=== PATIENT | female | born 1950 | race Caucasian/White ===

== ENCOUNTER → 2020-03-25 12:13 | Outpatient (BNVA) | payer MEDICARE, OTHER, SELFPAY | PROVIDERS: PCP Family Medicine; Referring Provider Dermatology; Visit Provider Internal Medicine Cardiovascular Disease | DX: I42.8 Other cardiomyopathies (principal); R06.02 Shortness of breath; R07.9 Chest pain, unspecified | CPT/HCPCS: 80048; 83880; 84484 ==

== ENCOUNTER → 2020-05-10 09:15 | Outpatient (BNVA) | payer MEDICARE, OTHER, SELFPAY | PROVIDERS: PCP Family Medicine; Visit Provider Internal Medicine Cardiovascular Disease | DX: I42.8 Other cardiomyopathies (principal); I44.7 Left bundle-branch block, unspecified; I10 Essential (primary) hypertension | CPT/HCPCS: 80048; 83880 ==

== ENCOUNTER 2020-09-23 14:30 | Outpatient (CLI) | payer MEDICARE, OTHER, SELFPAY ==
[2020-09-23 15:15] LABS: Basophils # 0.1 10^3/uL (0.0-0.1); Eosinophils # 0.3 10^3/uL (0.0-0.8); Eosinophils % 3.2 %; Hematocrit 41.5 % (37.0-47.0); Hemoglobin 13.6 g/dL (11.5-15.3); Lymphocytes # 2.3 10^3/uL (0.8-4.8); Lymphocytes % 25.9 %; Mean Corpuscular HGB Conc 32.8 g/dL (30.0-36.0); Mean Corpuscular Hemoglobin 28.8 pg (28.0-34.0); Mean Corpuscular Volume 87.7 fL (81-99); Mean Platelet Volume 9.7 fL (7.4-10.4); Monocytes # 0.6 10^3/uL (0.2-0.9); Monocytes % 6.6 %; Neutrophils # 5.58 10^3/uL (1.8-7.7); Neutrophils % 62.8 %; Nucleated Red Blood Cells % 0 %; Platelet Count 411 10^3/cmm (130-400); Red Blood Count 4.73 10^6/uL (4.1-5.3); Red Cell Distribution Width 13.3 % (12.1-15.1); White Blood Count 8.9 10^3/uL (4.0-10.0)
[2020-09-24 18:52] LABS: Alternaria Alternata (M6) Ige <0.10 kU/L; Alternaria Class 0; Bermuda Class 0; Bermuda Grass (G2) Ige <0.10 kU/L; Cat Dander (E1) Ige <0.10 kU/L; Cat Dander Class 0; Common Ragweed (Short) (W1) Ig <0.10 kU/L; D. Farinae Class 0; Dermatophagoides Class 0; Dermatophagoides Farinae (D2) <0.10 kU/L; Dermatophagoides Pteronyssinus <0.10 kU/L; Dog Dander (E5) Ige <0.10 kU/L; Dog Dander Class 0; Elm (T8) Ige <0.10 kU/L; Elm Class 0; English Plantain (W9) Ige <0.10 kU/L; English Plantain Class 0; House Dust (Greer) (H1) Ige <0.10 kU/L; House Dust (Hollister- Stier) <0.10 kU/L; House Dust Class 0; Immunoglobulin E 19 kU/L (<OR=114); Immunoglobulin E 20 kU/L (<OR=114); Johnson Grass (G10) Ige <0.10 kU/L; Johnson Grass Cl 0; June Grass Class 0; June Grass(Kentucky Blue) (G8) <0.10 kU/L; Lamb'S Quarters (Goose Foot) <0.10 kU/L; Lamb'S Quarters Class 0; Maple (Box Elder) (T1) Ige <0.10 kU/L; Maple Class 0; Meadow Fescue (G4) Ige <0.10 kU/L; Meadow Fescue Class 0; Mucor Racemosus Class 0; Oak (T7) Ige <0.10 kU/L; Oak Class 0; Orchard Grass (Cocksfoot) (G3) <0.10 kU/L; Penicillium Class 0; Penicillium Notatum (M1) Ige <0.10 kU/L; Perennial Rye Grass (G5) Ige <0.10 kU/L; Perennial Rye Grass Class 0; Ragweeed Class 0; Rough Marsh Elder (W16) Ige <0.10 kU/L; Rough Marsh Elder Class 0; Sweet Vernal Class 0; Sweet Vernal Grass (G1) Ige <0.10 kU/L; Timothy Grass (G6) Ige <0.10 kU/L; Timothy Grass Class 0
[2020-10-08 16:48] LABS: Aspergillus Fumigatus, Igg Ab, 3.7 mg/L (<=102)
== END 2020-09-23 14:31 | disposition home or self-care (01) ==
PROVIDERS: PCP Physician Assistant Medical; Visit Provider Internal Medicine Pulmonary Disease
DX: R05 Cough (principal); I10 Essential (primary) hypertension; I42.8 Other cardiomyopathies; E78.5 Hyperlipidemia, unspecified; I44.7 Left bundle-branch block, unspecified; Z79.899 Other long term (current) drug therapy
CPT/HCPCS: 36415; 82785; 85025; 86003

== ENCOUNTER → 2020-10-01 11:14 | Outpatient (BNVA) | payer MEDICARE, OTHER, SELFPAY | PROVIDERS: PCP Physician Assistant Medical; Visit Provider Internal Medicine Pulmonary Disease | DX: Z01.812 Encounter for preprocedural laboratory examination (principal); R05 Cough | CPT/HCPCS: 87635 ==

== ENCOUNTER 2020-10-06 12:58 | Outpatient (CLI) | payer MEDICARE, OTHER, SELFPAY ==
--- NOTE | 2020-10-06 13:30 | CT_ITS ---
WS: [id number] CT CHEST TECHNIQUE: Noncontrast CT of the chest with coronal and sagittal reformatted images. CLINICAL INFORMATION: recurrent pneumonia in patient with COPD COMPARISON: None. DLP: 519.[address] scans at [facility] use at least one of these dose optimization techniques: automat ed exposure control; mA and/or kV adjustment per patient size (includes targeted exams where dose is matched to clinical indication); or iterative reconstruction. FINDINGS: 1.4 cm left breast lesion. Recommend further evaluation with left diagnostic mammography and ultrasou nd. Mild chronic emphysematous changes. No acute pulmonary infiltrates. No consolidation or pleural fluid . No suspicious pulmonary parenchymal abnormalities. No mediastinal or hilar lymphadenopathy. Aortic calcification. Normal GE junction. Adrenal glands are normal. Cholecystectomy clips. CT/CT chest wo con [id number] IMPRESSION: 1. 1.4 cm low-attenuation left breast lesion. Recommend further evaluation wit h left breast diagnostic mammography and ultrasound. 2. Moderate chronic emphysematous changes. No acute pulmonary infiltrates. 3. No suspicious pulmonary parenchymal abnormalities. 4. No mediastinal or hilar lymphadenopathy. No axillary lymphadenopathy.
--- NOTE | 2020-10-06 13:55 | PFTS_ITS ---
Date of Study:10/06/20 Date of Dictation: MECHANICS: Forced vital capacity (FVC) is normal. Forced expiratory volume in one second (FEV1) is normal. FEV1/FVC is normal. FLOW VOLUME LOOP: Scooping is present. LUNG VOLUMES: Total lung capacity (TLC) is normal. Residual volume (RV) is normal. DIFFUSING CAPACITY FOR CARBON MONOXIDE: Normal. INTERPRETATION: The prebronchodilator spirometry is consistent with moderate obstruction. The postbronchodilator spirometry is normal. There is a significant postbronchodilator response. Lung volumes are normal. Gas exchange (DLCO) is normal. MTDD
== END 2020-10-06 12:59 | disposition home or self-care (01) ==
LOC: CT 12:58
PROVIDERS: PCP Physician Assistant Medical; Visit Provider Internal Medicine Pulmonary Disease
DX: R05 Cough (principal); J18.9 Pneumonia, unspecified organism; J44.9 Chronic obstructive pulmonary disease, unspecified; N64.89 Other specified disorders of breast
CPT/HCPCS: 71250; 94060; 94726; 94729; J7611

== ENCOUNTER 2021-02-15 12:03 | Outpatient (CLI) | payer MEDICARE, OTHER, SELFPAY ==
--- NOTE | 2021-02-15 12:45 | USCV_ITS ---
Juany Diana Age: 70 Gender: F : 1950 Exam Date: 02/15/2021 12:25 Ordering Phys: Suraj Awad MD ([email or web address]) Technologist: Soraida Hernandez [place] [facility] [place]: OTHER CM BP: 131 / 74 HR: 64 Rhythm: Sinus Technical Quality: Fair MEASUREMENTS (Male / Female) Normal Values 2D ECHO LV Diastolic Diameter PLAX 3.9 cm 4.2 - 5.9 / 3.9 - 5.3 cm LV Systolic Diameter PLAX 3.0 cm LV Chamber Size 5.1 cm IVS Diastolic Thickness 1.3 cm 0.6 - 1.0 / 0.6 - 0.9 cm IVS Systolic Thickness 1.8 cm LVPW Diastolic Thickness 1.6 cm 0.6 - 1.0 / 0.6 - 0.9 cm LVPW Systolic Thickness 1.2 cm RV Chamber Size 3.3 cm LVOT Diameter 2.0 cm LV Ejection Fraction 2D Teich 48.7 % LV Ejection Fraction MOD 2C 46.6 % LV Ejection Fraction 2C AL 43.4 % LA Diameter 2.9 cm LA Width 3.1 cm LA Height 4.4 cm RA Width 2.6 cm RA Height 3.7 cm M-MODE LV Diastolic Diameter MM 4.6 cm 4.2 - 5.9 / 3.9 - 5.3 cm LV Systolic Diameter MM 3.5 cm LV Ejection Fraction MM Teich 50.2 % IVS Diastolic Thickness MM 0.5 cm 0.6 - 1.0 / 0.6 - 0.9 cm IVS Systolic Thickness MM 0.8 cm LVPW Diastolic Thickness MM 0.8 cm 0.6 - 1.0 / 0.6 - 0.9 cm LVPW Systolic Thickness MM 1.3 cm Aortic Annulus Diameter 3.4 cm LA Ao Ratio MM 0.9 MV E Point Septal Separation 1.2 cm DOPPLER AV Peak Velocity 89.0 cm/s LVOT Peak Velocity 77.0 cm/s AV Area Cont Eq vti 3.2 cm squared AV Area Cont Eq pk 2.7 cm squared MV Area PHT 3.9 cm squared Mitral E to A Ratio 0.7 MV E' Velocity 34.0 cm/s Mitral E to MV E' Ratio 8.7 Mitral E to LV E' Lateral Ratio 8.9 Mitral E to LV E' Septal Ratio 8.6 TR Peak Velocity 196.8 cm/s TR Peak Gradient 15.5 mmHg TR Mean Velocity 145.8 cm/s TR Mean Gradient 9.4 mmHg TR Velocity Time Integral 55.3 cm TV Peak E Velocity 31.0 cm/s Right Atrial Pressure 3.0 mmHg Pulmonary Artery Systolic Pressu 18.5 mmHg PV Peak Velocity 66.0 cm/s RV Acceleration Time 0.1 s RV Ejection Time 0.3 s RV AcT/ET 0.3 FINDINGS Left Ventricle Normal LV size with a diminished ejection fraction of 45%. Diffuse hypokinesia of the left ventricle. Mild concentric left ventricular hypertrophy.Grade I/IV diastolic dysfunction (abnormal relaxation filling pattern), normal to mildly elevated filling pressures. Right Ventricle The right ventricle is normal in size and function. Right Atrium The right atrium is normal in size. Left Atrium The left atrium is normal in size. Mitral Valve No gross abnormalities noted Aortic Valve Trace aortic valve regurgitation. Tricuspid Valve Trace to mild tricuspid valve regurgitation. Pulmonic Valve No gross abnormalities noted Pericardium Normal pericardium without effusion. Aorta Normal ascending aorta dimension. CONCLUSIONS Normal LV size with a diminished ejection fraction of 45%. Diffuse hypokinesia of the left ventricle. Mild concentric left ventricular hypertrophy.Grade I/IV diastolic dysfunction (abnormal relaxation filling pattern), normal to mildly elevated filling pressures. Trace aortic valve regurgitation. Trace to mild tricuspid valve regurgitation. There is no pericardial effusion. There are no intracardiac masses. No similar previous studies are available for comparison Dr Suraj Awad MD [facility] (Electronically Signed) Final Date: 15 February 2021 20:34 S
== END 2021-02-15 12:04 | disposition home or self-care (01) ==
PROVIDERS: PCP Physician Assistant Medical; Visit Provider Internal Medicine Cardiovascular Disease
DX: I42.8 Other cardiomyopathies (principal)
CPT/HCPCS: 93306

== ENCOUNTER → 2021-06-14 11:11 | Outpatient (BNVA) | payer MEDICARE, OTHER, SELFPAY | PROVIDERS: PCP Physician Assistant Medical; Visit Provider Internal Medicine Cardiovascular Disease | DX: E78.2 Mixed hyperlipidemia (principal); I50.33 Acute on chronic diastolic (congestive) heart failure; E78.5 Hyperlipidemia, unspecified; R06.02 Shortness of breath | CPT/HCPCS: 80048; 80061; 83880 ==

== ENCOUNTER → 2022-01-25 09:55 | Outpatient (BNVA) | payer MEDICARE, OTHER, SELFPAY | PROVIDERS: PCP Registered Nurse; Visit Provider Internal Medicine Cardiovascular Disease | DX: I42.8 Other cardiomyopathies (principal); I44.7 Left bundle-branch block, unspecified; I10 Essential (primary) hypertension; J44.9 Chronic obstructive pulmonary disease, unspecified; E78.5 Hyperlipidemia, unspecified; Z87.891 Personal history of nicotine dependence | CPT/HCPCS: 99214 ==

== ENCOUNTER 2022-03-15 09:30 | Outpatient (CLI) | payer MEDICARE, OTHER, SELFPAY ==
[2022-03-15 10:17] LABS: Chol HDL Ratio 3.28 mg/dL (0.0-4.40); Cholesterol 177 mg/dL (0-200); HDL Cholesterol 54 mg/dL (60-100); LDL Cholesterol Calculated 106 mg/dL (50-129); LDL HDL Ratio 1.96 RATIO (0.00-3.22); Triglycerides 84 mg/dL (0-150)
== END 2022-03-15 09:31 | disposition home or self-care (01) ==
LOC: LAB 09:34
PROVIDERS: PCP Registered Nurse; Visit Provider Internal Medicine Cardiovascular Disease
DX: E78.2 Mixed hyperlipidemia (principal)
CPT/HCPCS: 80061

== ENCOUNTER 2022-03-24 12:56 | Outpatient (CLI) | payer MEDICARE, OTHER, SELFPAY ==
--- NOTE | 2022-03-24 13:45 | USCV_ITS ---
Juany Diana Age: 72 Gender: F : 1950 Exam Date: 03/24/2022 14:03 Ordering Phys: Suraj Awad MD ([email or web address]) Technologist: Rafia Palcaio [place] [facility] [place]: cardiomyopathy BP: 130 / 90 HR: 57 Rhythm: Sinus Technical Quality: Adequate MEASUREMENTS (Male / Female) Normal Values 2D ECHO LV Diastolic Diameter PLAX 4.1 cm 4.2 - 5.9 / 3.9 - 5.3 cm LV Systolic Diameter PLAX 2.6 cm IVS Diastolic Thickness 1.4 cm 0.6 - 1.0 / 0.6 - 0.9 cm IVS Systolic Thickness 1.7 cm LVPW Diastolic Thickness 0.7 cm 0.6 - 1.0 / 0.6 - 0.9 cm LVPW Systolic Thickness 1.3 cm LVOT Diameter 2.0 cm LV Ejection Fraction 2D Teich 66.2 % LV Ejection Fraction MOD 2C 64.0 % LV Ejection Fraction 2C AL 63.8 % LA Diameter 3.0 cm LA Width 3.3 cm LA Height 4.9 cm RA Width 2.0 cm RA Height 4.5 cm Aorta at Sinotubular Diameter 2.5 cm IVC Diameter 1.4 cm M-MODE MV E Point Septal Separation 1.5 cm DOPPLER AV Peak Velocity 92.0 cm/s LVOT Peak Velocity 86.0 cm/s AV Area Cont Eq vti 2.6 cm squared AV Area Cont Eq pk 2.9 cm squared MV Peak Velocity 74.0 cm/s MV Area PHT 3.9 cm squared Mitral E to A Ratio 0.8 MV E' Velocity 64.0 cm/s TR Peak Velocity 137.0 cm/s TR Peak Gradient 7.5 mmHg Right Atrial Pressure 3.0 mmHg Pulmonary Artery Systolic Pressu 10.5 mmHg PV Peak Velocity 46.0 cm/s RV Acceleration Time 0.1 s RV Ejection Time 0.3 s RV AcT/ET 0.3 FINDINGS Left Ventricle Mild left ventricular hypertrophy. Abnormal septal motion consistent with conduction abnormality. The LV ejection fraction around 50%.Grade I/IV diastolic dysfunction (abnormal relaxation filling pattern), normal to mildly elevated filling pressures. Right Ventricle The right ventricle is normal in size and function. Right Atrium The right atrium is normal in size. Left Atrium Mildly increased left atrial size. Mitral Valve Trace mitral valve regurgitation. Aortic Valve Thickened aortic valve. Tricuspid Valve Mild tricuspid valve regurgitation. Pulmonic Valve No gross abnormalities noted in Pericardium No pericardial effusion. Aorta Normal aortic annulus size. IVC Normal inferior vena cava. CONCLUSIONS Mild left ventricular hypertrophy. Abnormal septal motion consistent with conduction abnormality. The LV ejection fraction around 50%.Grade I/IV diastolic dysfunction (abnormal relaxation filling pattern), normal to mildly elevated filling pressures. Thickened aortic valve. Mildly increased left atrial size. Trace mitral valve regurgitation. Thickened aortic valve. Mild tricuspid valve regurgitation. Compared to the study from [facility] [place] 02/15/[place]21, there may not be a significant change Dr Suraj Awad MD [facility] (Electronically Signed) Final Date: 27 March 2022 09:13 S
== END 2022-03-24 12:57 | disposition home or self-care (01) ==
LOC: RAD 12:57
PROVIDERS: PCP Registered Nurse; Visit Provider Internal Medicine Cardiovascular Disease
DX: I42.8 Other cardiomyopathies (principal); R06.00 Dyspnea, unspecified; I08.3 Combined rheumatic disorders of mitral, aortic and tricuspid valves
CPT/HCPCS: 93306

== ENCOUNTER → 2022-04-03 09:04 | Outpatient (BNVA) | payer MEDICARE, OTHER, SELFPAY | PROVIDERS: PCP Registered Nurse; Visit Provider Internal Medicine Pulmonary Disease | DX: J45.40 Moderate persistent asthma, uncomplicated (principal); J44.9 Chronic obstructive pulmonary disease, unspecified; I42.8 Other cardiomyopathies; R05.9 Cough, unspecified; K21.9 Gastro-esophageal reflux disease without esophagitis; Z88.9 Allergy status to unspecified drugs, medicaments and biological substances; R06.09 Other forms of dyspnea; I50.9 Heart failure, unspecified; Z82.5 Family history of asthma and other chronic lower respiratory diseases; Z87.891 Personal history of nicotine dependence; Z77.22 Contact with and (suspected) exposure to environmental tobacco smoke (acute) (chronic) | CPT/HCPCS: 99214 ==

== ENCOUNTER → 2022-08-21 14:25 | Outpatient (BNVA) | payer MEDICARE, OTHER, SELFPAY | PROVIDERS: PCP Registered Nurse; Visit Provider Internal Medicine Pulmonary Disease | DX: R09.82 Postnasal drip (principal); J44.9 Chronic obstructive pulmonary disease, unspecified; I42.8 Other cardiomyopathies; R05.9 Cough, unspecified; K21.9 Gastro-esophageal reflux disease without esophagitis; J45.909 Unspecified asthma, uncomplicated; I50.9 Heart failure, unspecified; Z87.891 Personal history of nicotine dependence; Z77.22 Contact with and (suspected) exposure to environmental tobacco smoke (acute) (chronic); Z82.5 Family history of asthma and other chronic lower respiratory diseases | CPT/HCPCS: 99214 ==

== ENCOUNTER → 2023-02-01 13:05 | Outpatient (BNVA) | payer MEDICARE, OTHER, SELFPAY | PROVIDERS: PCP Registered Nurse; Visit Provider Nurse Practitioner Family | DX: I10 Essential (primary) hypertension (principal); I42.8 Other cardiomyopathies; Z87.891 Personal history of nicotine dependence | CPT/HCPCS: 36415; 80048; 83880; 99214 ==

== ENCOUNTER → 2023-02-19 08:15 | Outpatient (BNVA) | payer MEDICARE, OTHER, SELFPAY | PROVIDERS: PCP Registered Nurse; Visit Provider Internal Medicine Pulmonary Disease | DX: J44.9 Chronic obstructive pulmonary disease, unspecified (principal); R05.9 Cough, unspecified; K21.9 Gastro-esophageal reflux disease without esophagitis; R09.82 Postnasal drip; I10 Essential (primary) hypertension; Z87.891 Personal history of nicotine dependence; Z82.5 Family history of asthma and other chronic lower respiratory diseases | CPT/HCPCS: 36415; 83880; 99214 ==

== ENCOUNTER 2023-07-13 13:52 | Emergency (ER) | payer MEDICARE, OTHER, SELFPAY ==
[2023-07-13 14:08] VITALS: BP 151/84; PULSE 126; RESP 17; TEMP 36.6; O2SAT 95; BMI 26.5
[2023-07-13 14:43] LABS: Basophils % 0.3 %; Eosinophils # 0.4 10^3/uL (0.0-0.8); Eosinophils % 5.4 %; Hematocrit 41.1 % (36-47); Lymphocytes # 0.8 10^3/uL (0.8-4.8); Lymphocytes % 11.7 %; Mean Corpuscular HGB Conc 31.9 g/dL (30-55); Mean Corpuscular Hemoglobin 28.7 pg (27-33); Mean Corpuscular Volume 89.9 fl (85-98); Mean Platelet Volume 9.7 fL (7.4-10.4); Monocytes # 0.4 10^3/uL (0.2-0.9); Neutrophils # 5.08 10^3/uL (1.8-7.7); Neutrophils % 75.9 %; Nucleated Red Blood Cells % 0 %; Platelet Count 372 10^3/cmm (157-399); Red Blood Count 4.57 10^6/uL (3.85-5.65); Red Cell Distribution Width 13.2 % (12.1-15.1); White Blood Count 6.69 10^3/uL (3.29-11.43)
[2023-07-13 15:03] LABS: Alanine Aminotransferase 36 U/L (0-33); Albumin Level 3.9 g/dL (3.5-5.2); Alkaline Phosphatase 123 U/L (35-105); Anion Gap 18.5 (5-19); Blood Urea Nitrogen 9 mg/dL (8-23); Calcium 9.5 mg/dL (8.5-10.5); Carbon Dioxide 22 mmol/L (22-29); Chloride 99 mmol/L (98-107); Globulin 3.3 g/dL (1.3-4.6); Glucose 140 mg/dL (65-115); Lipase 14 U/L (13-60); Osmolality Calculated 281 mOsm/kg (285-295); Potassium 4.5 mmol/L (3.5-5.1); Sodium 135 mmol/L (136-145); Total Bilirubin 0.3 mg/dL (0.15-1.2); Total Protein 7.2 g/dL (6.6-8.7)
[2023-07-13 15:23] LABS: Aspartate Amino Transferase 5 U/L (0-32)
--- NOTE | 2023-07-13 16:34 | ED_ITS ---
HPI - Nausea/Vomiting/Diarrhea 2 General: Chief complaint: Nausea/Vomiting/Diarrhea Stated complaint: vomiting, diarrhea Time Seen by Provider: 07/13/23 16:27 Source: patient Mode of arrival: ambulatory History of Present Illness: 73-year-old female presents emergency ro om with complaint of persistent nausea vomiting abdominal cramping. She denies any hematemesis coffee-ground emesis. She has recurrent bladder infections been on 2 rounds of antibiotics lately. She states she has subjectively had some fevers at night. MD elicited complaint: nausea and vomiting Onset (ago): minute(s) Associated nausea: Yes Pain consistency: constant Quality: cramping Exacerbating factors: none Relieving factors: none Associated symtoms: Reports nausea; Denies altered mental status, anxiety, bloating, change in vision, chest pain, cough, diaphoresis, decreased urine output, dizziness, dysuria, epistaxis, fatigue, fecal incontinence, fevers/chills, headache(s), anorexia, malaise, myalgias, numbness, palpitations, rash, short of breath, syncope, tenesmus, tinnitus or weakness Review of Systems 2 Const: Reports: fever(s) (Subjective); Denies: fatigue, malaise or diaphoresis Eyes: Denies: change in vision ENMT: Denies: tinnitus or epistaxis Card: Denies: chest pain, palpitations or syncope Resp: Denies: dyspnea GI: Reports: abdominal pain, nausea and vomiting; Denies: bloating or fecal incontinence : Denies: dysuria Musc: Denies: neck pain or back pain Skin/Breast: Denies: rash Neuro: Denies: headache(s) or dizziness Psych: Denies: anxiety PFSH ED 2 PFSH: Medical History Benign essential HTN Non-ischemic cardiomyopathy Anxiety Cardiomyopathy LBBB (left bundle branch block) EKG from today, 03/25/2020 revealed normal sinus rhythm with a left bundle branch block. Hyperlipidemia Peripheral arterial occlusive disease Major depressive disorder Surgical History H/O breast biopsy History of cholecystectomy History of laparoscopic appendectomy Family History Other CAD (coronary artery disease) Diabetes Hypertension Lung disease Stroke Denies family history of Dementia Hyperlipidemia Psychiatric illness Chronic kidney disease (CKD) Suicide Cancer Social History Smoking and tobacco/nicotine status: former use of tobacco/nicotine Quit status (tobacco/nicotine): has quit using Year quit tobacco: 1970 social smoker, 3yrhx Second hand smoke exposure: Yes Alcohol intake: never Substance/Drug Use: never Lives independently: Yes Household members: none Housing: House Marital status: / service: No Current occupational status: retired Pets and animals: Yes Do you think of yourself as: Straight/Heterosexual Current gender identity: Female Physical Exam 2 Const: COMMON NORMALS: no acute distress EXAM LIMITATIONS: no altered mental status GENERAL APPEARANCE: cooperative and comfortable O RIENTATION/CONSCIOUSNESS: Yes awake, Yes oriented to person, Yes oriented to place and Yes oriented to time HENMT: COMMON NORMALS: normocephalic, atraumatic and hearing grossly normal bilaterally HEAD & SCALP: normocephalic and atraumatic Resp: COMMON NORMALS: normal respiratory effort, No retractions, No use of accessory muscles and clear to auscultation bilaterally AUSCULTATION: clear to auscultation bilaterally Cardio: COMMON NORMALS: regular rate, regular rhythm and No murmurs present (Cardio) RATE: regular rate RHYTHM: regular rhythm GI: COMMON NORMALS: Soft to palpation and No hepatosplenomegaly present A USCULTATION: Yes normoactive bowel sounds PALPATION: Yes Soft to palpation, No Tenderness to palpation present (GI), No Guarding due to palpation present (GI) and Yes No hepatosplenomegaly present Extremity: COMMON NORMALS: normal to inspection, capillary refill normal, no clubbing, cyanosis or edema, no calf tenderness and no pedal edema Neuro: SENSORIUM/ORIENTATION: Yes oriented to person, Yes oriented to place and Yes oriented to time Skin: COMMON NORMALS: no rashes or lesions noted GENERAL SKIN EXAM: no rashes or lesions noted Course 2 Vital Signs: Vital signs: Vital Signs Temperature 98 F 07/13/23 14:08 Pulse Rate 93 07/13/23 18:33 Respiratory Rate 17 07/13/23 14:08 Blood Pressure 146/79 07/13/23 18:33 Pulse Oximetry 98 07/13/23 18:33 Oxygen Delivery Me thod Room Air 07/13/23 16:39 MDM - Nausea/Vomiting/Diarrhea Medical Decision Making Cystitis. Patient is feeling better after IV fluids. Will change antibiotics for stronger coverage encouraged her to follow-up with her doctor return if is worsening problems Medical Records I reviewed the patient's medical records. Lab Data I reviewed the patient's lab results. 07/13/23 14:38 07/13/23 14:38 Laboratory Results WBC 6.69 10^3/uL (3.29-11.43) 07/13/23 14:38 RBC 4.57 10^6/uL (3.85-5.65) 07/13/23 14:38 Hgb 13.10 g/dL (11.27-16.99) 07/13/23 14:38 Hct 41.1 % (36-47) 07/13/23 14:38 MCV 89.9 fl (85-98) 07/13/23 14:38 MCH 28.7 pg (27-33) 07/13/23 14:38 MCHC 31.9 g/dL (30-55) 07/13/23 14:38 RDW 13.2 % (12.1-15.1) 07/13/23 14:38 Plt Count 372 10^3/cmm (157-399) 07/13/23 14:38 MPV 9.7 fL (7.4-10.4) 07/13/23 14:38 Neut % (Auto) 75.9 % 07/13/23 14:38 Lymph % (Auto) 11.7 % 07/13/23 14:38 [place] % (Auto) 6.0 % 07/13/23 14:38 Eos % (Auto) 5.4 % 07/13/23 14:38 Baso % (Auto) 0.3 % 07/13/23 14:38 Neut # (Auto) 5.08 10^3/uL (1.8-7.7) 07/13/23 14:38 Lymph # (Auto) 0.8 10^3/uL (0.8-4.8) 07/13/23 14:38 [place] # (Auto) 0.4 10^3/uL (0.2-0.9) 07/13/23 14:38 Eos # (Auto) 0.4 10^3/uL (0.0-0.8) 07/13/23 14:38 Baso # (Auto) 0.0 10^3/uL (0.0-0.1) 07/13/23 14:38 Nucleated RBC % (auto) 0 % 07/13/23 14:38 Nucleated RBCs # 0.0 /100WBC 07/13/23 14:38 Sodium 135 mmol/L (136-145) L 07/13/23 14:38 Potassium 4.5 mmol/L (3.5-5.1) 07/13/23 14:38 Chloride 99 mmol/L (98-107) 07/13/23 14:38 Carbon Dioxide 22 mmol/L (22-29) 07/13/23 14:38 Anion Gap 18.5 (5-19) 07/13/23 14:38 BUN 9 mg/dL (8-23) 07/13/23 14:38 Creatinine 0.9 mg/dL (0.5-0.9) 07/13/23 14:38 GFR Calculation Not Reportable 07/13/23 14:38 Glucose 140 mg/dL (65-115) H 07/13/23 14:38 Calculated Osmolality 281 mOsm/kg (285-295) L 07/13/23 14:38 Calcium 9.5 mg/dL (8.5-10.5) 07/13/23 14:38 Total Bilirubin 0.3 mg/dL (0.15-1.2) 07/13/23 14:38 AST 5 U/L (0-32) 07/13/23 14:38 ALT 36 U/L (0-33) H 07/13/23 14:38 Alkaline Phosphatase 123 U/L (35-105) H 07/13/23 14:38 Total Protein 7.2 g/dL (6.6-8.7) 07/13/23 14:38 Albumin 3.9 g/dL (3.5-5.2) 07/13/23 14:38 Globulin 3.3 g/dL (1.3-4.6) 07/13/23 14:38 Lipase 14 U/L (13-60) 07/13/23 14:38 Urine Color Yellow (Yellow) 07/13/23 16:56 Urine Appearance Hazy (CLEAR) A 12/01/23 16:56 Urine pH 5 (5-7) 07/13/23 16:56 Ur Specific [place] 1.005 (1.005-1.030) 07/13/23 16:56 Urine Protein Neg (Negative) 07/13/23 16:56 Urine Glucose (UA) Norm (Normal) 07/13/23 16:56 Urine Ketones 2+ (Negative) H 07/13/23 16:56 Urine Blood Neg (Negative) 07/13/23 16:56 Urine Nitrate Negative (Negative) 07/13/23 16:56 Urine Bilirubin Neg (Negative) 07/13/23 16:56 Urine Urobilinogen Norm mg/dL (Negative) 07/13/23 16:56 Ur Leukocyte Esterase 1+ (Negative) H 07/13/23 16:56 Urine RBC 0-4 /hpf (0-2) H 07/13/23 16:56 Urine WBC 15-25 /hpf (0-5) H 07/13/23 16:56 Ur Squamous Epith Cells 5-10 /hpf (0-5) H 07/13/23 16:56 Amorphous Sediment Not Reportable 07/13/23 16:56 Urine Bacteria Trace /hpf (NONE) 07/13/23 16:56 All radiology interpretation(s) finalized by discharge Discharge Plan Discharge Patient Disposition: Home Clinical Impression: Cystitis, Nausea and vomiting Condition: Stable Prescriptions: New promethazine 25 mg tablet 25 mg PO Q6H PRN (Reason: nausea and vomiting) Qty: 20 0RF Cipro 500 mg tablet 500 mg PO Q12H Qty: 14 0RF No Action aspirin [Adult Low Dose Aspirin] 81 mg tablet,delayed release (DR/EC) 81 mg PO DAILY lovastatin 20 mg tablet 20 mg PO DAILY lansoprazole 30 mg capsule,delayed release(DR/EC) 30 mg PO DAILY sertraline 50 mg tablet 50 mg PO DAILY spironolactone 25 mg tablet 12.5 mg PO DAILY fexofenadine [Roxanne Allergy] 180 mg tablet 180 mg PO DAILY PRN cholecalciferol (vitamin D3) 125 mcg (5,000 unit) capsule 125 mcg PO DAILY zinc 50 mg tablet 50 mg PO DAILY Saccharomyces boulardii [Florastor] 250 mg capsule 250 mg PO DAILY Rx Instructions: swallow whole montelukast 10 mg tablet 10 mg PO DAILY albuterol sulfate 2.5 mg /3 mL (0.083 %) solution for nebulization 2.5 mg inhalation Q6H PRN fluticasone propionate 50 mcg/actuation spray,suspension 1 spray intranasal DAILY PRN Rx Instructions: administer into each nostril albuterol sulfate 90 mcg/actuation HFA aerosol inhaler 2 puff inhalation Q6H PRN (Reason: shortness of breath or wheezing) Qty: 8.5 3RF Probiotic PO Zyrtec 10 mg capsule 10 mg PO DAILY PRN (Reason: allergy symptoms) Qty: 30 2RF furosemide 20 mg tablet 20 mg PO DAILY PRN (Reason: edema) Qty: 30 1RF metoprolol succinate 50 mg tablet extended release 24 hr See Rx Instructions .ROUTE .COMPLEX Qty: 90 3RF Dose Instruction: TAKE 1 TABLET DAILY Rx Instructions: TAKE 1 TABLET DAILY budesonide-formoterol [Symbicort] 160-4.5 mcg/actuation HFA aerosol inhaler 2 puff inhalation BID Qty: 10.2 6RF sacubitril-valsartan 97-103 mg tablet 1 tab PO BID Qty: 180 3RF Discharge Orders: Discharge ED (Routine); Ordered 07/13/23 Ordered By: Abel Montgomery Referrals: Marcia Madden FNP [Primary Care Provider] - Discharge Diet: Clear Liquid Discharge Activity: Increase activity as tolerated Patient Instructions: Opioid Safety, Pain Management Activity Restrictions/Additional Instructions: Thank you for choosing [facility] for your healthcare needs today. Please realize this is an emergency room and that we are providing you with a medical screening exam and this may not be complete and all inclusive of all the testing and or work up that you may need to determine your ailment or severity of your illness. It is very important that you follow up as instructed or that you return to the Emergency Department should you have concerns or if your condition changes or worsens in any way. You are seen today for nausea and vomiting. Laboratory test showed a bladder infection. Recommend he start ciprofloxacin 500 mg 1 p.o. twice daily for 7 days, we also gave you prescription for an antinausea medication to use as needed clear liquid diet for 24 to 48 hours and advance as tolerated. 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
[2023-07-13 16:39] VITALS: BP 146/88; PULSE 101; O2SAT 96
[2023-07-13] MEDS: sodium chloride 0.9% 1,000 ML 999 ML IV (16:55)
[2023-07-13] MEDS: ondansetron 2 mg/ML SDV 2 mL 4 MG IVP (16:55)
[2023-07-13 18:07] LABS: Add Urine Microscopic? YES; Bilirubin Urine Neg (Negative); Blood Urine Neg (Negative); Glucose Urine UA Norm (Normal); Ketones Urine 2+ (Negative); Leukocyte Esterase Urine 1+ (Negative); Nitrate Urine Negative (Negative); Protein Urine Neg (Negative); Specific Gravity, Urine 1.005 (1.005-1.030); Urine Appearance Hazy (CLEAR); Urine Color Yellow (Yellow); Urobilinogen Urine Norm (Negative); pH Urine 5 (5-7)
[2023-07-13 18:09] LABS: Bacteria Urine TRACE /hpf; RBC Urine 0-4 /hpf (0-2); WBC Urine 15-25 /hpf (0-5)
[2023-07-13 18:33] VITALS: BP 146/79; PULSE 93; O2SAT 98
== END 2023-07-13 18:34 | disposition home or self-care (01) ==
PROVIDERS: Physician Assistant; Emergency Provider Family Medicine; PCP Registered Nurse
DX: N30.90 Cystitis, unspecified without hematuria (principal); R11.2 Nausea with vomiting, unspecified; Z79.82 Long term (current) use of aspirin; Z87.891 Personal history of nicotine dependence; I11.9 Hypertensive heart disease without heart failure; I43 Cardiomyopathy in diseases classified elsewhere; E78.5 Hyperlipidemia, unspecified
CPT/HCPCS: 36415; 80053; 81001; 83690; 85025; 96374; 99284; J2405; J7030

== ENCOUNTER → 2023-08-15 13:22 | Outpatient (BNVA) | payer MEDICARE, OTHER, SELFPAY | PROVIDERS: PCP Registered Nurse; Visit Provider Internal Medicine Cardiovascular Disease | DX: I42.8 Other cardiomyopathies (principal); E78.2 Mixed hyperlipidemia; I10 Essential (primary) hypertension; I44.7 Left bundle-branch block, unspecified; J44.9 Chronic obstructive pulmonary disease, unspecified; Z87.891 Personal history of nicotine dependence | CPT/HCPCS: 99214 ==

== ENCOUNTER → 2024-01-30 14:16 | Outpatient (BNVA) | payer MEDICARE, OTHER, SELFPAY | PROVIDERS: PCP Nurse Practitioner Family; Visit Provider Internal Medicine Cardiovascular Disease | DX: I42.8 Other cardiomyopathies (principal); E78.2 Mixed hyperlipidemia; I44.7 Left bundle-branch block, unspecified; I10 Essential (primary) hypertension; Z87.891 Personal history of nicotine dependence | CPT/HCPCS: 99214 ==

== ENCOUNTER → 2024-02-26 14:10 | Outpatient (BNVA) | payer MEDICARE, OTHER, SELFPAY | PROVIDERS: PCP Nurse Practitioner Family; Visit Provider Internal Medicine Critical Care Medicine | DX: J45.40 Moderate persistent asthma, uncomplicated (principal); K21.9 Gastro-esophageal reflux disease without esophagitis; R09.82 Postnasal drip | CPT/HCPCS: 99213 ==

== ENCOUNTER 2024-07-19 02:12 | Emergency (ER) | payer MEDICARE, OTHER, SELFPAY ==
--- NOTE | 2024-07-19 02:22 | ECG_ITS ---
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
[2024-07-19 02:28] VITALS: BP 196/102; PULSE 104; RESP 20; TEMP 36.6; O2SAT 97; BMI 27.3
--- NOTE | 2024-07-19 02:38 | CTR_ITS ---
PROCEDURE INFORMATION: Exam: CT Head Without Contrast Exam date and time: 07/19/2024 2:53 AM Age: 74 years old Clinical indication: Syncope and collapse; Patient HX: Syncopal episode with hypertension TECHNIQUE: Imaging protocol: Computed tomography of the head without contrast. Radiation optimization: All CT scans at this facility use at least one of these dose optimization techniques: automated exposure control; mA and/or kV adjustment per patient size (includes targeted exams where dose is matched to clinical indication); or iterative reconstruction. COMPARISON: No relevant prior studies available. RADIATION DOSE METRICS: Total DLP (mGy-cm): 965.7 FINDINGS: Brain: Patchy hypodensity in the periventricular and subcortical white matter in keeping with chronic microvascular ischemic changes. Generalized global atrophy. No intracranial masses or mass effect. No midline shift. No abnormal extra-axial collections. No acute intracranial hemorrhage. Cerebral ventricles: Prominence of the ventricles commensurate with atrophy. No prachi hydrocephalus. Paranasal sinuses: Chronic right maxillary sinusitis incompletely imaged. Mastoid air cells: Visualized mastoid air cells are well aerated. Bones: Unremarkable. No acute fracture. Soft tissues: Unremarkable. CT/CT head wo con* [id number] IMPRESSION: 1. No acute intracranial findings. 2. Chronic right maxillary sinusitis incompletely imaged.
--- NOTE | 2024-07-19 02:38 | XRR_ITS ---
PROCEDURE INFORMATION: Exam: XR Chest Exam date and time: 07/19/2024 2:45 AM Age: 74 years old Clinical indication: Other: Syncope; Patient HX: Syncopal episode with hypertension TECHNIQUE: Imaging protocol: Radiologic exam of the chest. Views: 1 view. COMPARISON: CT chest con [id number] 10/06/2020 1:26 PM FINDINGS: Lungs: No infiltrate. Increased density left lung base may represent infiltrate and/or pleural effusion. Pleural spaces: See Lungs finding. Heart/Mediastinum: There is mild cardiomegaly with vascular congestion. Bones/joints: Unremarkable. XR/XR chest 1V portable [id number] IMPRESSION: 1. Mild cardiomegaly with vascular congestion. 2. Increased density left lung base may represent infiltrate and/or pleural effusion.
[2024-07-19 02:43] LABS: Basophils # 0.1 10^3/uL (0.0-0.1); Basophils % 0.6 %; Eosinophils # 0.3 10^3/uL (0.0-0.8); Eosinophils % 2.9 %; Hematocrit 38.2 % (36-47); Lymphocytes # 4.3 10^3/uL (0.8-4.8); Mean Corpuscular HGB Conc 31.9 g/dL (30-55); Mean Corpuscular Volume 87.6 fl (85-98); Mean Platelet Volume 10.1 fL (7.4-10.4); Monocytes # 0.8 10^3/uL (0.2-0.9); Monocytes % 7.7 %; Neutrophils # 4.73 10^3/uL (1.8-7.7); Neutrophils % 46.6 %; Nucleated Red Blood Cells % 0 %; Platelet Count 374 10^3/cmm (157-399); Red Blood Count 4.36 10^6/uL (3.85-5.65); Red Cell Distribution Width 13.7 % (12.1-15.1); White Blood Count 10.13 10^3/uL (3.29-11.43)
--- NOTE | 2024-07-19 02:46 | ED_ITS ---
HPI - Syncope 2 General: Chief Complaint: Syncope Stated Complaint: passed out a couple min Time Seen by Provider: 07/19/24 02:27 History of Present Illness: 74-year-old female presenting after a sy ncopal episode. She had had family over in her house. Around 11 PM they decided to lay down. They got up to go around 1. She had been up picking things up, turning up [place] lights, etc. She evidently felt somewhat faint, and then passed out. She was out for 2 minutes according to family. She had no chest pain. No shortness of breath. She has had a mild cough. No fever. She does have a history of nonischemic cardiomyopathy as well as a left bundle branch block. Related Data Home Medications Medication Instructions Recorded Confirmed aspirin 81 mg tablet,delayed 81 mg PO DAILY 03/25/20 02/26/24 release (Adult Low Dose Aspirin) lansoprazole 30 mg capsule,delayed 30 mg PO DAILY 03/25/20 02/26/24 release lovastatin 20 mg tablet 20 mg PO DAILY 03/25/20 02/26/24 sertraline 50 mg tablet 50 mg PO DAILY 03/25/20 02/26/24 spironolactone 25 mg tablet 12.5 mg PO DAILY 03/25/20 02/26/24 Saccharomyces boulardii 250 mg 250 mg PO DAILY 09/10/20 02/26/24 capsule (Florastor) albuterol sulfate 2.5 mg/3 mL 2.5 mg inhalation Q6H PRN 09/10/20 02/26/24 (0.083 %) solution for nebulization montelukast 10 mg tablet 10 mg PO DAILY 09/10/20 02/26/24 zinc 50 mg tablet 50 mg PO DAILY 09/10/20 02/26/24 Probiotic PO 01/25/22 02/26/24 fexofenadine 180 mg tablet 180 mg PO DAILY PRN 01/25/22 02/26/24 (Roxanne Allergy) fluticasone propionate 50 1 spray intranasal DAILY PRN 01/25/22 02/26/24 mcg/actuation nasal spray,suspension levothyroxine 13 mcg capsule 50 mcg PO DAILY 02/26/24 02/26/24 Previous Rx's Medication Instructions Recorded albuterol sulfate 90 mcg/actuation 2 puff inhalation Q6H PRN 09/23/20 aerosol inhaler shortness of breath or wheezing #8.5 grams metoprolol succinate 50 mg See Rx Instructions .Route 02/26/23 tablet,extended release 24 hr .COMPLEX #90 tabs valsartan 80 mg tablet See Rx Instructions .Route 03/05/24 .COMPLEX #60 tabs budesonide-formoterol HFA 160 2 puff inhalation BID COPD j44.9 05/02/24 mcg-4.5 mcg/actuation aerosol #10.2 grams inhaler Allergies Allergy/AdvReac Type Severity Reaction Status Date / Time amlodipine [From Lotrel] Allergy Unknown unknown Verified 02/26/24 15:13 benazepril [From Lotrel] Allergy Unknown unknown Verified 02/26/24 15:13 cephalexin [From Keflex] Allergy Unknown unknown Verified 02/26/24 15:13 Sulfa (Sulfonamide Allergy Unknown unknown Verified 02/26/24 15:13 Antibiotics) PFSH ED 2 PFSH: Medical History Benign essential HTN Non-ischemic cardiomyopathy Anxiety Cardiomyopathy LBBB (left bundle branch block) EKG from today, 03/25/2020 revealed normal sinus rhythm with a left bundle branch block. Hyperlipidemia Peripheral arterial occlusive disease Major depressive disorder Surgical History H/O breast biopsy History of cholecystectomy History of laparoscopic appendectomy Family History Other CAD (coronary artery disease) Diabetes Hypertension Lung disease Stroke Denies family history of Dementia Hyperlipidemia Psychiatric illness Chronic kidney disease (CKD) Suicide Cancer Social History Smoking and tobacco/nicotine status: never used tobacco/nicotine Second hand smoke exposure: Yes Alcohol intake: never Substance/Drug Use: never Lives independently: Yes Household members: none Housing: House Marital status: / service: No Current occupational status: retired Pets and animals: Yes Do you think of yourself as: Straight/Heterosexual Current gender identity: Female Physical Exam 2 Const: COMMON NORMALS: no acute distress GENERAL APPEARANCE: cooperative; not ill appearing and not frail appearing HENMT: COMMON NORMALS: normocephalic, atraumatic and Normal external nose present HEAD & SCALP: normocephalic and atraumatic FACE & SINUS: normal facial exam and face symmetric NOSE: Normal external nose present Eye: COMMON NORMALS: Equal, round and reactive pupils present and EOMs intact bilaterally PUPIL: Yes Equal, round and reactive pupils present Neck/C-Spine: GENERAL: Yes trachea midline Chest: CHEST: Yes Symmetrical chest wall rise Resp: COMMON NORMALS: normal respiratory effort, No retractions, No use of accessory muscles and clear to auscultation bilaterally AUSCULTATION: clear to auscultation bilaterally Cardio: COMMON NORMALS: regular rate and regular rhythm RATE: regular rate RHYTHM: regular rhythm GI: COMMON NORMALS: Normal to inspection, nondistended, normoactive bowel sounds present Extremity: COMMON NORMALS: no pedal edema Neuro: CARRIE COMA SCALE: document GCS findings Carrie coma scale eye opening: Spontaneous Carrie coma scale verbal response: Orientated [place] coma scale motor response: Obey commands [place] coma scale total score: 15 S ENSORY EXAM: Yes extremities (intact) Psych: COMMON NORMALS: speech normal SPEECH: Yes normal speech Skin: COMMON NORMALS: no rashes or lesions noted GENERAL SKIN EXAM: no rashes or lesions noted Course 2 Vital Signs: Vital signs: Vital Signs Temperature 98 F 07/19/24 02:28 Pulse Rate 72 07/19/24 05:27 Respiratory Rate 18 07/19/24 04:45 Blood Pressure 172/98 07/19/24 05:27 Pulse Oximetry 97 07/19/24 05:27 MDM - Syncope Medical Decision Making Blood pressure has been high. IV metoprolol, oral losartan, and 40 mg of IV Lasix have helped. Current blood pressure 163/95. Heart rate is down to 75. CBC and BMP are not remarkable. Troponin is a change of -0.2 at [address] shows chronic right maxillary sinusitis without other insults. Chest x-ray shows mild increased and vascular congestion. She has been up walking in the emergency department without assistance to the bathroom. NIH scale is 0 so be discharged. She will watch her blood pressure closely follow-up as an outpatient, return for any new or worsening symptoms. Lab Data 07/19/24 02:30 07/19/24 02:30 Radiology Impressions Chest X-Ray 07/19/24 02:38 IMPRESSION: 1. Mild cardiomegaly with vascular congestion. 2. Increased density left lung base may represent infiltrate and/or pleural effusion. Head CT 07/19/24 02:38 IMPRESSION: 1. No acute intracranial findings. 2. Chronic right maxillary sinusitis incompletely imaged. Laboratory Results WBC 10.13 10^3/uL (3.29-11.43) 07/19/24 02:30 RBC 4.36 10^6/uL (3.85-5.65) 07/19/24 02:30 Hgb 12.20 g/dL (11.27-16.99) 07/19/24 02:30 Hct 38.2 % (36-47) 07/19/24 02:30 MCV 87.6 fl (85-98) 07/19/24 02:30 MCH 28.0 pg (27-33) 07/19/24 02:30 MCHC 31.9 g/dL (30-55) 07/19/24 02:30 RDW 13.7 % (12.1-15.1) 07/19/24 02:30 Plt Count 374 10^3/cmm (157-399) 07/19/24 02:30 MPV 10.1 fL (7.4-10.4) 07/19/24 02:30 Neut % (Auto) 46.6 % 07/19/24 02:30 Lymph % (Auto) 42.0 % 07/19/24 02:30 [place] % (Auto) 7.7 % 07/19/24 02:30 Eos % (Auto) 2.9 % 07/19/24 02:30 Baso % (Auto) 0.6 % 07/19/24 02:30 Neut # (Auto) 4.73 10^3/uL (1.8-7.7) 07/19/24 02:30 Lymph # (Auto) 4.3 10^3/uL (0.8-4.8) 07/19/24 02:30 [place] # (Auto) 0.8 10^3/uL (0.2-0.9) 07/19/24 02:30 Eos # (Auto) 0.3 10^3/uL (0.0-0.8) 07/19/24 02:30 Baso # (Auto) 0.1 10^3/uL (0.0-0.1) 07/19/24 02:30 Nucleated RBC % (auto) 0 % 07/19/24 02:30 Nucleated RBCs # 0.0 /100WBC 07/19/24 02:30 PT 12.30 SECONDS (12.1-14.9) 07/19/24 02:30 INR 0.89 (0.8-1.2) 07/19/24 02:30 APTT 30.0 SECONDS (23.9-36.7) 07/19/24 02:30 Sodium 138 mmol/L (136-145) 07/19/24 02:30 Potassium 3.5 mmol/L (3.5-5.1) 07/19/24 02:30 Chloride 102 mmol/L (98-107) 07/19/24 02:30 Carbon Dioxide 25 mmol/L (22-29) 07/19/24 02:30 Anion Gap 14.5 (5-19) 07/19/24 02:30 BUN 14 mg/dL (8-23) 07/19/24 02:30 Creatinine 0.7 mg/dL (0.5-0.9) 07/19/24 02:30 GFR Calculation Not Reportable 07/19/24 02:30 Glucose 121 mg/dL (65-115) H 07/19/24 02:30 Calculated Osmolality 288 mOsm/kg (285-295) 07/19/24 02:30 Calcium 9.5 mg/dL (8.5-10.5) 07/19/24 02:30 Total Bilirubin 0.3 mg/dL (0.15-1.2) 07/19/24 02:30 AST 17 U/L (0-32) 07/19/24 02:30 ALT 13 U/L (0-33) 07/19/24 02:30 Alkaline Phosphatase 84 U/L (35-105) 07/19/24 02:30 Creatine Kinase 86 U/L (26-192) 07/19/24 02:30 Troponin T Baseline 12 ng/L (0-10) H 07/19/24 02:30 Troponin T 120 Minute 11.82 ng/L (0-10) H 07/19/24 04:24 Delta Troponin T -0.18 ABS# (0-10) L 07/19/24 04:24 NT-Pro-B Natriuret Pep 1195 pg/mL (0-125) H 07/19/24 02:30 Total Protein 7.1 g/dL (6.6-8.7) 07/19/24 02:30 Albumin 4.4 g/dL (3.5-5.2) 07/19/24 02:30 Globulin 2.7 g/dL (1.3-4.6) 07/19/24 02:30 Urine Color Yellow (Yellow) 07/19/24 03:50 Urine Appearance Clear (CLEAR) 07/19/24 03:50 Urine pH 7.0 (5-7) 07/19/24 03:50 Ur Specific [place] 1.009 (1.005-1.030) 07/19/24 03:50 Urine Protein Negative (Negative) 07/19/24 03:50 Urine Glucose (UA) Negative (Normal) 07/19/24 03:50 Urine Ketones Negative (Negative) 07/19/24 03:50 Urine Blood Negative (Negative) 07/19/24 03:50 Urine Nitrate Negative (Negative) 07/19/24 03:50 Urine Bilirubin Negative (Negative) 07/19/24 03:50 Urine Urobilinogen 0.2 mg/dL (Negative) 07/19/24 03:50 Ur Leukocyte Esterase Negative (Negative) 07/19/24 03:50 Amorphous Sediment Not Reportable 07/19/24 03:50 All radiology interpretation(s) finalized by discharge Discharge Plan Discharge Patient Disposition: Home Clinical Impression: Non-ischemic cardiomyopathy, Benign essential HTN, Syncope Clinical Impression: (Ruled Out): Multiple allergies Condition: Stable Prescriptions: No Action aspirin [Adult Low Dose Aspirin] 81 mg tablet,delayed release (DR/EC) 81 mg PO DAILY lovastatin 20 mg tablet 20 mg PO DAILY lansoprazole 30 mg capsule,delayed release(DR/EC) 30 mg PO DAILY sertraline 50 mg tablet 50 mg PO DAILY spironolactone 25 mg tablet 12.5 mg PO DAILY fexofenadine [Roxanne Allergy] 180 mg tablet 180 mg PO DAILY PRN zinc 50 mg tablet 50 mg PO DAILY Saccharomyces boulardii [Florastor] 250 mg capsule 250 mg PO DAILY Rx Instructions: swallow whole montelukast 10 mg tablet 10 mg PO DAILY albuterol sulfate 2.5 mg /3 mL (0.083 %) solution for nebulization 2.5 mg inhalation Q6H PRN fluticasone propionate 50 mcg/actuation spray,suspension 1 spray intranasal DAILY PRN Rx Instructions: administer into each nostril albuterol sulfate 90 mcg/actuation HFA aerosol inhaler 2 puff inhalation Q6H PRN (Reason: shortness of breath or wheezing) Qty: 8.5 3RF Probiotic PO levothyroxine 13 mcg capsule 50 mcg PO DAILY metoprolol succinate 50 mg tablet extended release 24 hr See Rx Instructions .ROUTE .COMPLEX Qty: 90 3RF Dose Instruction: TAKE 1 TABLET DAILY Rx Instructions: TAKE 1 TABLET DAILY valsartan 80 mg tablet See Rx Instructions .ROUTE .COMPLEX Qty: 60 5RF Dose Instruction: TAKE ONE TABLET BY MOUTH TWICE DAILY Rx Instructions: TAKE ONE TABLET BY MOUTH TWICE DAILY budesonide-formoterol 160-4.5 mcg/actuation HFA aerosol inhaler 2 puff inhalation BID Qty: 10.2 6RF Discharge Orders: Discharge ED (Routine); Ordered 07/19/24 Ordered By: Jaxon Smith Referrals: Bernice Fletcher FNP [Primary Care Provider] - Patient Instructions: Syncope (ED), Hypertension (ED), Opioid Safety, Pain Management Activity Restrictions/Additional Instructions: Return for repeated episodes of syncope or passing out, development of chest discomfort, worsening shortness of breath, any other concerning symptoms. Call your doctor on Sunday. Let them know you were seen here after a syncopal episode. There are more outpatient tests such as a heart monitor that they may wish you to perform. 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
[2024-07-19 02:52] LABS: INR 0.89 (0.8-1.2)
[2024-07-19 02:59] LABS: Troponin(5th) Baseline 12 ng/L (0-10)
[2024-07-19 03:07] LABS: Alanine Aminotransferase 13 U/L (0-33); Albumin Level 4.4 g/dL (3.5-5.2); Alkaline Phosphatase 84 U/L (35-105); Anion Gap 14.5 (5-19); Aspartate Amino Transferase 17 U/L (0-32); Blood Urea Nitrogen 14 mg/dL (8-23); Calcium 9.5 mg/dL (8.5-10.5); Carbon Dioxide 25 mmol/L (22-29); Chloride 102 mmol/L (98-107); Creatine Phosphokinase 86 U/L (26-192); Creatinine Clr Calc Pharmacy 51.3288; Globulin 2.7 g/dL (1.3-4.6); Glucose 121 mg/dL (65-115); NT Pro B Type Natriuretic Pept 1195 pg/mL (0-125); Osmolality Calculated 288 mOsm/kg (285-295); Potassium 3.5 mmol/L (3.5-5.1); Sodium 138 mmol/L (136-145); Total Bilirubin 0.3 mg/dL (0.15-1.2); Total Protein 7.1 g/dL (6.6-8.7)
[2024-07-19 03:16] VITALS: BP 179/99; PULSE 71; RESP 15; O2SAT 98
[2024-07-19] MEDS: metoprolol tartrate 1 mg/1 mL SDV 5 mL 5 MG IVP (03:26)
[2024-07-19 03:49] VITALS: BP 180/97; PULSE 72; RESP 18; O2SAT 97
[2024-07-19 03:56] LABS: Add Urine Microscopic? NO
[2024-07-19 04:14] LABS: Bilirubin Urine Negative (Negative); Blood Urine Negative (Negative); Glucose Urine UA Negative (Normal); Ketones Urine Negative (Negative); Leukocyte Esterase Urine Negative (Negative); Nitrate Urine Negative (Negative); Protein Urine Negative (Negative); Specific Gravity, Urine 1.009 (1.005-1.030); Urine Appearance Clear (CLEAR); Urine Color Yellow (Yellow); Urobilinogen Urine 0.2 mg/dL (Negative)
[2024-07-19 04:18] LABS: Charge for UA Resulting for Rev
[2024-07-19] MEDS: losartan 50 mg Tablet PO (04:26)
[2024-07-19] MEDS: FUROsemide 10 mg/mL SDV 4mL 40 MG IVP (04:26)
[2024-07-19 04:45] VITALS: BP 163/95; PULSE 77; RESP 18; O2SAT 97
[2024-07-19 04:47] LABS: Troponin 5 2HR 11.82 ng/L (0-10)
[2024-07-19 04:49] LABS: Troponin 5 2HR Delta -0.18 ABS# (0-10)
[2024-07-19 05:27] VITALS: BP 172/98; PULSE 72; O2SAT 97
== END 2024-07-19 05:28 | disposition home or self-care (01) ==
PROVIDERS: Emergency Provider Emergency Medicine; PCP Nurse Practitioner Family
DX: I42.8 Other cardiomyopathies (principal); I10 Essential (primary) hypertension; R55 Syncope and collapse; Z79.82 Long term (current) use of aspirin; E78.5 Hyperlipidemia, unspecified
CPT/HCPCS: 70450; 71045; 80053; 81003; 82550; 83880; 84484; 85025; 85610; 85730; 93005; 96374; 96375; 99285; J1940; J3490

== ENCOUNTER → 2024-08-11 13:25 | Outpatient (BNVA) | payer MEDICARE, OTHER, SELFPAY | PROVIDERS: PCP Nurse Practitioner Family; Visit Provider Internal Medicine Cardiovascular Disease | DX: R55 Syncope and collapse (principal); E78.2 Mixed hyperlipidemia; I44.7 Left bundle-branch block, unspecified; I42.8 Other cardiomyopathies; I10 Essential (primary) hypertension | CPT/HCPCS: 99214 ==

== ENCOUNTER 2024-09-05 11:01 | Outpatient (CLI) | payer MEDICARE, OTHER, SELFPAY ==
--- NOTE | 2024-09-05 11:15 | USCV_ITS ---
Juany Diana Age: 74 Gender: F : 1950 Exam Date: 09/05/2024 11:29 Ordering Phys: Suraj Awad MD ([email or web address]) Technologist: [place] [facility] [place]: BP: 182 / 100 HR: 73 Rhythm: Atrial fibrillation Technical Quality: Adequate MEASUREMENTS (Male / Female) Normal Values 2D ECHO LVOT Diameter 2.0 cm LV Ejection Fraction MOD 4C 30.8 % LV Ejection Fraction MOD 2C 37.4 % LV Ejection Fraction 2C AL 36.4 % LA Diameter 3.2 cm RA Systolic Volume 4C AL 14.7 ml RA Systolic Volume 4C MOD 14.5 ml LA Sys Volume AL 46.6 cm cubed LA Sys Volume Index AL 29.6 cm cubed/m squared Aorta at Sinotubular Diameter 2.4 cm IVC Diameter 1.7 cm M-MODE LA Ao Ratio MM 1.2 AV Cusp Separation MM 1.7 cm DOPPLER AV Peak Velocity 92.0 cm/s LVOT Peak Velocity 69.0 cm/s AV Area Cont Eq vti 2.5 cm squared AV Area Cont Eq pk 2.4 cm squared MV Peak Velocity 103.0 cm/s MV Area PHT 7.3 cm squared Mitral E to A Ratio 2.8 TV Peak Velocity 200.7 cm/s TR Peak Velocity 202.0 cm/s TR Peak Gradient 16.3 mmHg TR Mean Velocity 157.0 cm/s TR Mean Gradient 10.8 mmHg TR Velocity Time Integral 56.4 cm TV Peak E Velocity 86.0 cm/s PV Peak Velocity 82.0 cm/s FINDINGS Left Ventricle Diffuse hypokinesis of the left ventricle with an ejection fraction of 30 to 35% (visual). Mildly dilated LV cavity Right Ventricle Normal right ventricular size and systolic function. Right Atrium Patient with normal size Left Atrium Normal left atrial size. Mitral Valve No gross abnormalities noted Aortic Valve Thickened aortic valve. Tricuspid Valve Trace tricuspid valve regurgitation. Pulmonic Valve No gross abnormalities noted Pericardium No pericardial effusion. Aorta Normal aorta. IVC Normal inferior vena cava. CONCLUSIONS Diffuse hypokinesis of the left ventricle with an ejection fraction of 30 to 35% (visual). Mildly dilated LV cavity. Thickened aortic valve. Trace tricuspid valve regurgitation. There are no intracardiac masses. There is no pericardial effusion. Since 03/24/2022, there is a significant drop in the LV ejection fraction, from 50% to 39% Dr Suraj Awad MD FAC (Electronically Signed) Final Date: 21 September 2024 18:43 S
== END 2024-09-05 11:02 | disposition home or self-care (01) ==
LOC: RAD 11:03
PROVIDERS: PCP Nurse Practitioner Family; Visit Provider Internal Medicine Cardiovascular Disease
DX: R06.09 Other forms of dyspnea (principal); R93.1 Abnormal findings on diagnostic imaging of heart and coronary circulation; I51.7 Cardiomegaly; I35.8 Other nonrheumatic aortic valve disorders
CPT/HCPCS: 93306

== ENCOUNTER 2025-01-13 08:03 | Outpatient (CLI) | payer MEDICARE, OTHER, SELFPAY ==
[2025-01-13 08:07] VITALS: BMI 22.4
--- NOTE | 2025-01-13 08:07 | ECG_ITS ---
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 Interpretive Statements LEXISCAN SESTAMIBI STRESS TEST Procedure: At the baseline, the blood pressure was 190/98mmHg with a heart rate of 78 bpm. The electrocardiogram showed normal sinus rhythm, left bundle branch block with normal ST and T's. The Lexiscan was infused over a period of 20 seconds. A total of 0.4 mg of Lexiscan was infused. The stress phase was continued for a total of 5 minutes. Heart rate was at the end of stress phase was 97 bpm and a blood pressure of 176/85 mmHg. The EKG at the peak infusion revealed normal sinus rhythm with no significant ST-T wave changes. Sestamibi was injected 20 seconds after the Lexiscan infusion. Blood pressure at the end of recovery phase was 182/99mmHg with a heart rate of 84 bpm. Conclusion: 1. Normal EKG response to Lexiscan infusion 2. No Lexiscan induced chest pain or cardiac arrhythmia. 3. Normal blood pressure and heart rate response. 4. Sestamibi/sestamibi perfusion scan pending; see separate report. Electronically Signed On 01-29-2025 10:43:03 CDT by Drew Evans M.D. [email or web address]
--- NOTE | 2025-01-13 08:08 | NMCV_ITS ---
NM suzie perf SPECT r/s* [id number] Juany Diana Age: 74 Gender: F : 1950 Exam Date: 01/13/2025 09:06 Ordering Phys: Suraj Awad MD ([email or web address]) Technologist: JANETH Hahn Exam Location: [facility] Indications: cp STRESS TEST Please see separate stress test report in [facility] for full findings IMAGE PROTOCOL Rest/Stress 1 Lexiscan Day Radiopharmaceutical Dose (mCi) Administration Site Administered by Rest: Tc-99m 10.8 IV JANETH Hahn Sestamibi Stress:Tc-99m 32.6 IV JANETH Hahn Sestamibi Rest: 13-Jan-2025 60 Discovery 630 Stress: 13-Jan-2025 30 Discovery 630 0.4mg Lexiscan.images obtained in supine and prone position. SPECT RESULTS Technical Quality: Good Raw Data Analysis: Normal Image Corrections: No attenuation or motion correction applied Summed Stress Score: 7 Summed Rest Score: 11 Summed Difference Score: 0 PERFUSION FINDINGS Medium sized area of fixed perfusion defect seen in the apical, septal and apical inferior johnson. This is constent with medium sized areas of prior infarct seen in the these territories. No evidence of ischemia. FUNCTIONAL RESULTS (calculated via Gated SPECT) Stress Image LV EF (%): 36 Stress EDV (mL):115 TID: 1.03 Stress ESV (mL):74 FUNCTIONAL FINDINGS: LV systolic function is moderately reduced IMPRESSIONS 1. Abnormal myocardial perfusion imaging with medium sized area of prior infarct seen in the apical, septal and apical inferior johnson. No evidence of ischemia 2. LV systolic function is moderately reduced with EF of 36% Drew Evans MD (Electronically Signed) Final Date: 19 January 2025 11:02 S
[2025-01-13] MEDS: regadenoson 0.4 Mg/5 ml Syringe IVP (09:29)
[2025-01-13] MEDS: aminophylline 25 mg/mL SDV 20 mL IVP ×2 (09:35→09:37)
[2025-01-13 09:43] VITALS: BP 182/99; PULSE 84
== END 2025-01-13 08:04 | disposition home or self-care (01) ==
LOC: CDL 08:04
PROVIDERS: PCP Nurse Practitioner Family; Visit Provider Internal Medicine Cardiovascular Disease
DX: I42.8 Other cardiomyopathies (principal); R93.1 Abnormal findings on diagnostic imaging of heart and coronary circulation
CPT/HCPCS: 36415; 78452; 93017; 96374; A9500; J0280; J2785

== ENCOUNTER → 2025-02-09 09:46 | Outpatient (BNVA) | payer MEDICARE, OTHER, SELFPAY | PROVIDERS: PCP Nurse Practitioner Family; Visit Provider Nurse Practitioner Family | DX: R55 Syncope and collapse (principal); E78.2 Mixed hyperlipidemia; I44.7 Left bundle-branch block, unspecified; I42.8 Other cardiomyopathies; I10 Essential (primary) hypertension; Z79.82 Long term (current) use of aspirin | CPT/HCPCS: 99214 ==

== ENCOUNTER 2025-03-06 07:50 | Outpatient (CLI) | payer MEDICARE, OTHER, SELFPAY ==
--- NOTE | 2025-03-06 08:00 | USCV_ITS ---
Juany Diana Age: 74 Gender: F : 1950 Exam Date: 03/06/2025 08:07 Ordering Phys: Paradise Saavedra NP Technologist: Exam Location: [facility] – [place] Indication: syst heart failure BP: 130 / 70 HR: 58 Rhythm: Sinus Technical Quality: Adequate MEASUREMENTS (Male / Female) Normal Values 2D ECHO LVOT Diameter 2.0 cm LV Ejection Fraction MOD 4C 34.9 % LV Ejection Fraction MOD 2C 39.2 % LV Ejection Fraction 2C AL 40.4 % LA Diameter 3.2 cm RA Systolic Volume 4C AL 15.6 ml RA Systolic Volume 4C MOD 15.0 ml LA Sys Volume AL 37.7 cm cubed LA Sys Volume Index AL 21.9 cm cubed/m squared IVC Diameter 1.7 cm M-MODE LA Ao Ratio MM 1.2 AV Cusp Separation MM 2.0 cm DOPPLER AV Peak Velocity 91.0 cm/s LVOT Peak Velocity 70.0 cm/s AV Area Cont Eq vti 2.5 cm squared AV Area Cont Eq pk 2.4 cm squared MV Peak Velocity 108.0 cm/s MV Area PHT 8.0 cm squared Mitral E to A Ratio 0.5 TV Peak Velocity 227.5 cm/s TR Peak Velocity 238.0 cm/s TR Peak Gradient 22.7 mmHg TV Peak E Velocity 109.0 cm/s PV Peak Velocity 82.0 cm/s FINDINGS Left Ventricle Mildly dilated left ventricle. Moderate left ventricular systolic dysfunction with ejection fraction of 35%. There is akinesis of the entire inferoseptal and inferior johnson. The rest of the myocardial segments are hypokinetic. Normal left ventricular wall thickness. Grade 1 left ventricular diastolic dysfunction. Right Ventricle The right ventricle is normal in size and function. Right Atrium The right atrium is normal in size. Left Atrium The left atrium is normal in size. Mitral Valve Structurally normal mitral valve. No stenosis. Mild mitral valve regurgitation. Aortic Valve Structurally normal aortic valve without significant sclerosis or stenosis. There is no aortic regurgitation. Tricuspid Valve Structurally normal tricuspid valve. Mild tricuspid valve regurgitation. Pulmonary artery systolic pressure is normal. Pulmonic Valve Structurally normal pulmonic valve without significant stenosis. There is no pulmonic regurgitation. Pericardium Normal pericardium without effusion. Aorta Normal aortic root and ascending aorta dimension. IVC The inferior vena cava appears normal. CONCLUSIONS 1. Moderately reduced left ventricular systolic function, EF 35%. There is global left ventricular hypokinesis with akinesis of the inferoseptal and inferior johnson. 2. No significant valvular abnormalities 3. Mild mitral valve regurgitation Pierce [place] (Electronically Signed) Final Date: 06 March 2025 17:04 S
== END 2025-03-06 07:51 | disposition home or self-care (01) ==
PROVIDERS: PCP Nurse Practitioner Family; Visit Provider Nurse Practitioner Family
DX: I42.8 Other cardiomyopathies (principal); R93.1 Abnormal findings on diagnostic imaging of heart and coronary circulation; I34.0 Nonrheumatic mitral (valve) insufficiency; I07.1 Rheumatic tricuspid insufficiency
CPT/HCPCS: 93306

== ENCOUNTER 2025-03-16 22:39 | Observation (INO) | payer MEDICARE, OTHER, SELFPAY ==
[2025-03-16 22:43] VITALS: BP 106/65; PULSE 81; RESP 16; TEMP 36.6; O2SAT 98
--- NOTE | 2025-03-16 23:43 | ECG_ITS ---
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 Measurements Intervals Slater Rate: 71 P: 51 AR: 188 QRS: 1 QRSD: 150 T: 165 QT: 394 QTc: 430 Interpretive Statements SINUS RHYTHM LEFT BUNDLE BRANCH BLOCK [120+ ms QRS DURATION, 80+ ms Q/S IN V1/V2, 85+ ms R IN I/aVL/V5/V6] Compared to ECG 07/19/2024 02:22:34 No significant changes Electronically Signed On 03-17-2025 23:03:08 CDT by Suraj Awad M.D. [email or web address]
[2025-03-16 23:47] LABS: Hematocrit 39.3 % (36-47); Hemoglobin 13.10 g/dL (11.27-16.99); Mean Corpuscular HGB Conc 33.3 g/dL (30-55); Mean Corpuscular Hemoglobin 29.0 pg (27-33); Mean Corpuscular Volume 86.9 fl (85-98); Nucleated Red Blood Cells % 0 %; Platelet Count 374 10^3/cmm (157-399); Red Blood Count 4.52 10^6/uL (3.85-5.65); White Blood Count 7.82 10^3/uL (3.29-11.43)
[2025-03-16 23:49] VITALS: BP 195/103; PULSE 82; RESP 18; O2SAT 98
[2025-03-17] VITALS (11 sets, daily range): BP systolic 134–179; BP diastolic 72–95; PULSE 62–89; RESP 16–19; TEMP 36.6; O2SAT 93–97
[2025-03-17 00:04] LABS: Glucose Urine UA Negative (Normal); Nitrate Urine Negative (Negative); Specific Gravity, Urine 1.007 (1.005-1.030)
[2025-03-17 00:08] LABS: Add Urine Microscopic? YES
[2025-03-17 00:10] LABS: Lactic Sepsis W/Reflex 0.8 mmol/L (0.5-2.2)
[2025-03-17 00:22] LABS: Alanine Aminotransferase 16 U/L (0-33); Albumin Level 4.2 g/dL (3.5-5.2); Alkaline Phosphatase 76 U/L (35-105); Anion Gap 16.9 (5-19); Aspartate Amino Transferase 19 U/L (0-32); Blood Urea Nitrogen 15 mg/dL (8-23); Calcium 9.4 mg/dL (8.5-10.5); Carbon Dioxide 23 mmol/L (22-29); Chloride 97 mmol/L (98-107); Creatinine Clr Calc Pharmacy 46.9109; Globulin 3.0 g/dL (1.3-4.6); Glucose 108 mg/dL (65-115); Osmolality Calculated 277 mOsm/kg (285-295); Potassium 3.9 mmol/L (3.5-5.1); Sodium 133 mmol/L (136-145); Thyroid Stimulating Hormone 18.47 uIU/mL (0.27-4.20); Total Protein 7.2 g/dL (6.6-8.7)
--- NOTE | 2025-03-17 00:29 | CTR_ITS ---
PROCEDURE INFORMATION: Exam: CT Head Without Contrast Exam date and time: 03/17/2025 12:41 AM Age: 74 years old Clinical indication: Stroke-like symptoms; RT lower extremity weakness; Additional info: Symptoms of acute stroke TECHNIQUE: Imaging protocol: Computed tomography of the head without contrast. Radiation optimization: All CT scans at this facility use at least one of these dose optimization techniques: automated exposure control; mA and/or kV adjustment per patient size (includes targeted exams where dose is matched to clinical indication); or iterative reconstruction. Other technique: STROKE PROTOCOL was implemented. COMPARISON: CT head wo con* [id number] 07/19/2024 2:53 AM RADIATION DOSE METRICS: Total DLP (mGy-cm): 999.58 FINDINGS: Brain: No acute infarction, hemorrhage, mass, or extra-axial fluid collection is identified. No midline shift. Cerebral ventricles: No hydrocephalus. Paranasal sinuses: Imaged right maxillary sinus appears opacified. Mastoid air cells: Right mastoid effusion. Bones: Calvarium appears intact. Soft tissues: Unremarkable. CT/CT head thrombolytic [id number] IMPRESSION: 1. No acute intracranial abnormality. 2. Right maxillary sinus disease and right mastoid effusion. ASSESSMENT: ASPECTS ([place] Stroke Program Early CT Score) is 10.
--- NOTE | 2025-03-17 00:42 | CTR_ITS ---
PROCEDURE INFORMATION: Exam: CTA Head With Contrast, Arteriography Exam date and time: 03/17/2025 12:48 AM Age: 74 years old Clinical indication: Stroke-like symptoms; RT lower extremity weakness TECHNIQUE: Imaging protocol: Computed tomographic angiography of the head with contrast. Exam focused on the arteries. 3D rendering (Not supervised by radiologist): MIP and/or 3D reconstructed images were created by the technologist. Radiation optimization: All CT scans at this facility use at least one of these dose optimization techniques: automated exposure control; mA and/or kV adjustment per patient size (includes targeted exams where dose is matched to clinical indication); or iterative reconstruction. Contrast material: OMNI 350; Contrast volume: 100 ml; Contrast route: INTRAVENOUS (IV); COMPARISON: CT head thrombolytic [id number] 03/17/2025 12:41 AM RADIATION DOSE METRICS: Total DLP (mGy-cm): 353.41 FINDINGS: ANTERIOR CIRCULATION: Right internal carotid artery: Intracranial segment is patent with no significant stenosis. No aneurysm. Right middle cerebral artery: No occlusion or significant stenosis. No aneurysm. Right anterior cerebral artery: No occlusion or significant stenosis. No aneurysm. Left internal carotid artery: Intracranial segment is patent with no significant stenosis. No aneurysm. Left middle cerebral artery: No occlusion or significant stenosis. No aneurysm. Left anterior cerebral artery: No occlusion or significant stenosis. No aneurysm. POSTERIOR CIRCULATION: Right vertebral artery: No occlusion or significant stenosis. No aneurysm. Left vertebral artery: No occlusion or significant stenosis. No aneurysm. Basilar artery: No occlusion or significant stenosis. No aneurysm. Right posterior cerebral artery: No occlusion or significant stenosis. No aneurysm. Left posterior cerebral artery: Predominantly origin. No occlusion or significant stenosis. No aneurysm. Brain: No definite mass, mass effect, or midline shift. Cerebral ventricles: No ventriculomegaly. Bones/joints: Unremarkable. No acute fracture. Soft tissues: Unremarkable. PROCEDURE INFORMATION: Exam: CTA Neck With Contrast Exam date and time: 03/17/2025 12:48 AM Age: 74 years old Clinical indication: Stroke-like symptoms; RT lower extremity weakness TECHNIQUE: Imaging protocol: Computed tomographic angiography of the neck with contrast. Exam focused on the cervical segments of the vasculature. 3D rendering (Not supervised by radiologist): MIP and/or 3D reconstructed images were created by the technologist. Radiation optimization: All CT scans at this facility use at least one of these dose optimization techniques: automated exposure control; mA and/or kV adjustment per patient size (includes targeted exams where dose is matched to clinical indication); or iterative reconstruction. Contrast material: OMNI 350; Contrast volume: 100 ml; Contrast route: INTRAVENOUS (IV); COMPARISON: CT head thrombolytic [id number] 03/17/2025 12:41 AM RADIATION DOSE METRICS: Total DLP (mGy-cm): 3535.41 FINDINGS: Right common carotid artery: No stenosis. No dissection or occlusion. Right internal carotid artery: No stenosis of the extracranial segment. No dissection or occlusion. Right external carotid artery: No occlusion or stenosis of the origin. Left common carotid artery: No stenosis. No dissection or occlusion. Left internal carotid artery: No stenosis of the extracranial segment. No dissection or occlusion. Left external carotid artery: No occlusion or stenosis of the origin. Right vertebral artery: No stenosis. No dissection or occlusion. Left vertebral artery: No stenosis. No dissection or occlusion. Soft tissues: Normal. No significant soft tissue swelling. Bones/joints: No acute fracture. CT/CT angio headneck* [id number] IMPRESSION: No large vessel stenosis or occlusion. IMPRESSION: No stenosis or occlusion. REFERENCES: NASCET CRITERIA. The degree of stenosis in the cervical segment of the internal carotid artery is based on NASCET criteria. Normal is no stenosis. Mild is less than 50% stenosis. Moderate is 50-69% stenosis. Severe is 70% to 99% stenosis. Total occlusion is no detectable patent lumen.
--- NOTE | 2025-03-17 00:42 | PC.NURSE ---
pt transported to ct scan
--- NOTE | 2025-03-17 00:45 | W.ED.NEUROSD ---
Documented by User: RAYNA Pacheco 03/17/25 01:16 HPI - Neuro Symptoms/Deficit General: Chief Complaint: Neuro Symptoms/Deficit Stated Complaint: Confused Time Seen by Provider: 03/16/25 23:06 History of Present Illness: Patient is a 74-year-old female with history of HTN, hypothyroidism, asthma, presented to ED with word finding, slurred speech. Patient stated that this happened at 3 PM/1500 today, noted with thicker speech, and word finding. Patient stated she had confusion, and had to sit down to think of people's names. This happened right after cleaning the basement with cleaning products. She stated at first she had bilateral hand tingling, however states she just had right upper extremity tingling that has now resolved. Symptoms remaining: Slurred speech, word finding, headache. Denies: Dysphagia, sensation changes, monitor neurological extremity issues such as weakness. No issues with her gait. Patient stated she was on aspirin for primary prevention, however she has not taken it lately. She is unsure why she stopped taking it, and does have it available at home. Blood pressure is quite elevated at 195/103 Associated symptoms: Reports headache(s); Deny chest pain, nausea, vertigo or vomiting Related Data Home Medications ?Medication ?Instructions ?Recorded ?Confirmed aspirin 81 mg tablet,delayed 81 mg PO DAILY 03/25/20 02/09/25 release (Adult Low Dose Aspirin) lansoprazole 30 mg capsule,delayed 30 mg PO DAILY 03/25/20 02/09/25 release lovastatin 20 mg tablet 20 mg PO DAILY 03/25/20 02/09/25 sertraline 50 mg tablet 50 mg PO DAILY 03/25/20 02/09/25 spironolactone 25 mg tablet 12.5 mg PO DAILY 03/25/20 02/09/25 Saccharomyces boulardii 250 mg 250 mg PO DAILY 09/10/20 02/09/25 capsule (Florastor) albuterol sulfate 2.5 mg/3 mL 2.5 mg inhalation Q6H PRN 09/10/20 02/09/25 (0.083 %) solution for nebulization montelukast 10 mg tablet 10 mg PO DAILY 09/10/20 02/09/25 Probiotic PO 01/25/22 02/09/25 fexofenadine 180 mg tablet 180 mg PO DAILY PRN 01/25/22 02/09/25 (Roxanne Allergy) fluticasone propionate 50 1 spray intranasal DAILY PRN 01/25/22 02/09/25 mcg/actuation nasal spray,suspension levothyroxine 13 mcg capsule 50 mcg PO DAILY 02/26/24 02/09/25 budesonide-formoterol HFA 160 2 puff inhalation BID PRN COPD 02/09/25 mcg-4.5 mcg/actuation aerosol j44.9 inhaler zinc 50 mg tablet 50 mg PO DAILY PRN 02/09/25 02/09/25 Previous Rx's ?Medication ?Instructions ?Recorded albuterol sulfate 90 mcg/actuation 2 puff inhalation Q6H PRN 09/23/20 aerosol inhaler shortness of breath or wheezing #8.5 grams metoprolol succinate 50 mg See Rx Instructions .Route 02/26/23 tablet,extended release 24 hr .COMPLEX #90 tabs valsartan 80 mg tablet See Rx Instructions .Route 03/05/24 .COMPLEX #60 tabs Allergies Allergy/AdvReac Type Severity Reaction Status Date / Time amlodipine (From Lotrel) Allergy Unknown unknown Verified 03/16/25 22:48 benazepril (From Lotrel) Allergy Unknown unknown Verified 03/16/25 22:48 cephalexin (From Keflex) Allergy Unknown unknown Verified 03/16/25 22:48 Sulfa (Sulfonamide Allergy Unknown unknown Verified 03/16/25 22:48 Antibiotics) Review of Systems General: Reports: 10 or more systems reviewed and unremarkable except in HPI and below Const: Denies: fever(s) or chills Eyes: Denies: change in vision or blurry vision ENMT: Denies: throat pain or mouth pain Card: Denies: chest pain or palpitations Resp: Denies: dyspnea or non-productive cough GI: Denies: abdominal pain, nausea or vomiting : Denies: flank pain or difficulty voiding Musc: Denies: neck pain, back pain, extremity pain or extremity swelling Skin/Breast: Denies: rash or pruritus Neuro: Reports: headache(s), lack of coordination and Slurred speech present; Denies: numbness in extremities, weakness in extremities, sensory changes, difficulty walking, dizziness or vertigo Psych: Denies: anxiety or depression PFSH ED PFSH: Medical History Benign essential HTN Non-ischemic cardiomyopathy Anxiety Cardiomyopathy LBBB (left bundle branch block) EKG from today, 03/25/2020 revealed normal sinus rhythm with a left bundle branch block. Hyperlipidemia Peripheral arterial occlusive disease Major depressive disorder Surgical History H/O breast biopsy History of cholecystectomy History of laparoscopic appendectomy Family History Other CAD (coronary artery disease) Diabetes Hypertension Lung disease Stroke Denies family history of Dementia Hyperlipidemia Psychiatric illness Chronic kidney disease (CKD) Suicide Cancer Social History Smoking and tobacco/nicotine status: never used tobacco/nicotine Second hand smoke exposure: Yes Alcohol intake: never Substance/Drug Use: never Lives independently: Yes Household members: none Housing: House Marital status: / service: No Current occupational status: retired Pets and animals: Yes Do you think of yourself as: Straight/Heterosexual Current gender identity: Female NIH stroke score NIHSS: Level Of Consciousness - 1a: 0 Level Of Consciousness Questions - 1b: Both Correct Level Of Consciousness Commands - 1c: Both Correct Best Gaze - 2: Normal Visual Willis - 3: No Visual Loss Facial Palsy - 4: Normal Motor Arm Right - 5: No Drift Motor Arm Left - 5: No Drift Motor Leg Right - 6: No Drift Motor Leg Left - 6: No Drift Limb Ataxia - 7: Absent Sensory - 8: Normal Best Language - 9: No Aphasia Dysarthia - 10: Mild/Moderate Dysarthia Extinction And Inattention - 11: 1 Score: Total Score: 2 Physical Exam Const: COMMON NORMALS: no acute distress, average body habitus and patient oriented x3 HENMT: COMMON NORMALS: normocephalic, atraumatic, EAC's normal and TM's normal bilaterally HEAD & SCALP: normocephalic and atraumatic EXTERNAL AUDITORY CANAL: EAC's normal TYMPANIC MEMBRANE: TM's normal bilaterally Neck/C-Spine: COMMON NORMALS: full ROM, no lymphadenopathy and supple Lymph: LYMPHATIC: no lymphadenopathy noted Chest: COMMONS NORMALS: normal inspection of the chest and normal palpation of the breasts BREAST/AXILLA PALPATION: Yes normal palpation of the breasts Resp: COMMON NORMALS: normal respiratory effort and clear to auscultation bilaterally AUSCULTATION: clear to auscultation bilaterally Cardio: COMMON NORMALS: regular rate and regular rhythm RATE: regular rate RHYTHM: regular rhythm GI: COMMON NORMALS: Normal to inspection, nondistended, normoactive bowel sounds present and Soft to palpation PALPATION: Yes Soft to palpation : COMMON NORMALS: Yes no CVA tenderness BLADDER/KIDNEY EXAM: Yes no CVA tenderness Back/Pelvis: COMMON NORMALS: no CVA tenderness Extremity: COMMON NORMALS: normal to inspection, full ROM and capillary refill normal Neuro: COMMON NORMALS: patient oriented x3 Psych: COMMON NORMALS: mental status grossly normal and cooperative ACTIVITY/MOTOR BEHAVIOR: Yes appropriate eye contact Skin: COMMON NORMALS: no rashes or lesions noted and no wounds GENERAL SKIN EXAM: no rashes or lesions noted Course Consultations: Consultation #1: d/w Dr. Diaz. Recommends observation admission and therapy evaluation for ongoing symptoms. Aspirin after CT thrombolytics is negative for hemorrhagic. Consultation #2: D/w Dr. Enriquez, accepted observation admission Vital Signs: Vital signs: Vital Signs Temperature 97.8 F 03/17/25 03:27 Pulse Rate 83 03/17/25 03:27 Respiratory Rate 19 H 03/17/25 03:27 Blood Pressure 158/86 03/17/25 03:27 Pulse Oximetry 97 03/17/25 03:27 Oxygen Delivery Me thod Room Air 03/17/25 02:10 MDM - Neuro Symptoms/Deficit Medical Decision Making Patient is a 74-year-old female, presented to ED outside of the window of tPA, with symptoms at 1500 of word finding, confusion, slurred speech. She had some tingling she first reported as bilateral and then unilateral. CT of the head thrombolytics is pending, then will go forward with CTA head and neck for any concern of interventional radiology. Patient has, no symptoms of slurred speech, word finding. Discussed with Dr. Diaz that recommends observation, and evaluation by therapy. Patient will need echo with bubble study as well. Aspirin will be given after CT thrombolytics is negative. Medical Records I reviewed the patient's medical records. Lab Data I reviewed the patient's lab results. 03/16/25 23:40 03/16/25 23:[address] 03/17/25 00:29 IMPRESSION: 1. No acute intracranial abnormality. 2. Right maxillary sinus disease and right mastoid effusion. ASSESSMENT: ASPECTS ([place] Stroke Program Early CT Score) is 10. ADDENDUM: 03/17/25115 THIS REPORT CONTAINS FINDINGS THAT MAY BE CRITICAL TO PATIENT CARE. Per OC support at 1:10 AM CDT on 03/17/2025, Dr. Albert has seen the reports and has no questions. Head/Neck CTA 03/17/25 00:42 IMPRESSION: No large vessel stenosis or occlusion. IMPRESSION: No stenosis or occlusion. REFERENCES: NASCET CRITERIA. The degree of stenosis in the cervical segment of the internal carotid artery is based on NASCET criteria. Normal is no stenosis. Mild is less than 50% stenosis. Moderate is 50-69% stenosis. Severe is 70% to 99% stenosis. Total occlusion is no detectable patent lumen. ADDENDUM: 03/17/25115 THIS REPORT CONTAINS FINDINGS THAT MAY BE CRITICAL TO PATIENT CARE. Per OC support at 1:10 AM CDT on 03/17/2025, Dr. Albert has seen the reports and has no questions. Laboratory Results WBC 7.82 10^3/uL (3.29-11.43) 03/16/25 23:40 RBC 4.52 10^6/uL (3.85-5.65) 03/16/25 23:40 Hgb 13.10 g/dL (11.27-16.99) 03/16/25 23:40 Hct 39.3 % (36-47) 03/16/25 23:40 MCV 86.9 fl (85-98) 03/16/25 23:40 MCH 29.0 pg (27-33) 03/16/25 23:40 MCHC 33.3 g/dL (30-55) 03/16/25 23:40 RDW 13.1 % (12.1-15.1) 03/16/25 23:40 Plt Count 374 10^3/cmm (157-399) 03/16/25 23:40 MPV 9.7 fL (7.4-10.4) 03/16/25 23:40 Neut % (Auto) 40.4 % 03/16/25 23:40 Lymph % (Auto) 45.7 % 03/16/25 23:40 [place] % (Auto) 9.7 % 03/16/25 23:40 Eos % (Auto) 3.3 % 03/16/25 23:40 Baso % (Auto) 0.6 % 03/16/25 23:40 Neut # (Auto) 3.16 10^3/uL (1.8-7.7) 03/16/25 23:40 Lymph # (Auto) 3.6 10^3/uL (0.8-4.8) 03/16/25 23:40 [place] # (Auto) 0.8 10^3/uL (0.2-0.9) 03/16/25 23:40 Eos # (Auto) 0.3 10^3/uL (0.0-0.8) 03/16/25 23:40 Baso # (Auto) 0.1 10^3/uL (0.0-0.1) 03/16/25 23:40 Nucleated RBC % (auto) 0 % 03/16/25 23:40 Nucleated RBCs # 0.0 /100WBC 03/16/25 23:40 PT 12.00 SECONDS (12.1-14.9) L 03/17/25 00:00 INR 0.83 (0.8-1.2) 03/17/25 00:00 APTT 32.1 SECONDS (23.9-36.7) 03/17/25 00:00 Sodium 133 mmol/L (136-145) L 03/16/25 23:40 Potassium 3.9 mmol/L (3.5-5.1) 03/16/25 23:40 Chloride 97 mmol/L (98-107) L 03/16/25 23:40 Carbon Dioxide 23 mmol/L (22-29) 03/16/25 23:40 Anion Gap 16.9 (5-19) 03/16/25 23:40 BUN 15 mg/dL (8-23) 03/16/25 23:40 Creatinine 0.7 mg/dL (0.5-0.9) 03/16/25 23:40 GFR Calculation Not Reportable 03/16/25 23:40 Glucose 108 mg/dL (65-115) 03/16/25 23:40 Calculated Osmolality 277 mOsm/kg (285-295) L 03/16/25 23:40 Lactic Acid 0.8 mmol/L (0.5-2.2) 03/16/25 23:40 Calcium 9.4 mg/dL (8.5-10.5) 03/16/25 23:40 Total Bilirubin 0.3 mg/dL (0.15-1.2) 03/16/25 23:40 AST 19 U/L (0-32) 03/16/25 23:40 ALT 16 U/L (0-33) 03/16/25 23:40 Alkaline Phosphatase 76 U/L (35-105) 03/16/25 23:40 NT-Pro-B Natriuret Pep 1602 pg/mL (0-125) H 03/16/25 23:40 Total Protein 7.2 g/dL (6.6-8.7) 03/16/25 23:40 Albumin 4.2 g/dL (3.5-5.2) 03/16/25 23:40 Globulin 3.0 g/dL (1.3-4.6) 03/16/25 23:40 TSH 18.47 uIU/mL (0.27-4.20) H 03/16/25 23:40 Urine Color Yellow (Yellow) 03/16/25 23:58 Urine Appearance Clear (CLEAR) 03/16/25 23:58 Urine pH 6.5 (5-7) 03/16/25 23:58 Ur Specific [place] 1.007 (1.005-1.030) 03/16/25 23:58 Urine Protein Negative (Negative) 03/16/25 23:58 Urine Glucose (UA) Negative (Normal) 03/16/25 23:58 Urine Ketones Negative (Negative) 03/16/25 23:58 Urine Blood Negative (Negative) 03/16/25 23:58 Urine Nitrate Negative (Negative) 03/16/25 23:58 Urine Bilirubin Negative (Negative) 03/16/25 23:58 Urine Urobilinogen 0.2 mg/dL (Negative) 03/16/25 23:58 Ur Leukocyte Esterase 1+ (Negative) A 03/16/25 23:58 Urine RBC 0-2 /hpf (0-2) 03/16/25 23:58 Urine WBC 6-10 /hpf (0-5) 03/16/25 23:58 Ur Squamous Epith Cells 0-5 /hpf (0-5) 03/16/25 23:58 Amorphous Sediment Not Reportable 03/16/25 23:58 Urine Bacteria None seen /hpf (NONE) 03/16/25 23:58 Hyaline Casts 0.40 /lpf 03/16/25 23:58 Urine Opiates Screen Negative ng/mL (Negative) 03/17/25 00:00 Ur Barbiturates Screen Negative ng/mL (Negative) 03/17/25 00:00 Ur Phencyclidine Scrn Negative ng/mL (Negative) 03/17/25 00:00 Ur Amphetamines Screen Negative ng/mL (Negative) 03/17/25 00:00 U Benzodiazepines Scrn Negative ng/mL (Negative) 03/17/25 00:00 Urine Cocaine Screen Negative ng/mL (Negative) 03/17/25 00:00 U Marijuana (THC) Screen Negative ng/mL (Negative) 03/17/25 00:00 All radiology interpretation(s) finalized by discharge EKG Data EKG 1: Interpretation: Left bundle branch block. No change from previous. Discharge Plan Discharge Patient Disposition: Placed in Observation Admit Provider: Doyle Enriquez Clinical Impression: Right maxillary sinusitis, LBBB (left bundle branch block) Cerebrovascular accident Qualifiers: CVA mechanism: unspecified Qualified Code(s): I63.9 - Cerebral infarction, unspecified Coding Level of Care Code ED [employer]ch[employer] for [employer] Documented by User: Logan Quinn MD 03/17/25 04:03 HPI - Neuro Symptoms/Deficit General: Chief Complaint: Neuro Symptoms/Deficit Stated Complaint: Confused Time Seen by Provider: 03/16/25 23:06 Related Data Home Medications ?Medication ?Instructions ?Recorded ?Confirmed aspirin 81 mg tablet,delayed 81 mg PO DAILY 03/25/20 02/09/25 release (Adult Low Dose Aspirin) lansoprazole 30 mg capsule,delayed 30 mg PO DAILY 03/25/20 02/09/25 release lovastatin 20 mg tablet 20 mg PO DAILY 03/25/20 02/09/25 sertraline 50 mg tablet 50 mg PO DAILY 03/25/20 02/09/25 spironolactone 25 mg tablet 12.5 mg PO DAILY 03/25/20 02/09/25 Saccharomyces boulardii 250 mg 250 mg PO DAILY 09/10/20 02/09/25 capsule (Florastor) albuterol sulfate 2.5 mg/3 mL 2.5 mg inhalation Q6H PRN 09/10/20 02/09/25 (0.083 %) solution for nebulization montelukast 10 mg tablet 10 mg PO DAILY 09/10/20 02/09/25 Probiotic PO 01/25/22 02/09/25 fexofenadine 180 mg tablet 180 mg PO DAILY PRN 01/25/22 02/09/25 (Roxanne Allergy) fluticasone propionate 50 1 spray intranasal DAILY PRN 01/25/22 02/09/25 mcg/actuation nasal spray,suspension levothyroxine 13 mcg capsule 50 mcg PO DAILY 02/26/24 02/09/25 budesonide-formoterol HFA 160 2 puff inhalation BID PRN COPD 02/09/25 mcg-4.5 mcg/actuation aerosol j44.9 inhaler zinc 50 mg tablet 50 mg PO DAILY PRN 02/09/25 02/09/25 Previous Rx's ?Medication ?Instructions ?Recorded albuterol sulfate 90 mcg/actuation 2 puff inhalation Q6H PRN 09/23/20 aerosol inhaler shortness of breath or wheezing #8.5 grams metoprolol succinate 50 mg See Rx Instructions .Route 02/26/23 tablet,extended release 24 hr .COMPLEX #90 tabs valsartan 80 mg tablet See Rx Instructions .Route 03/05/24 .COMPLEX #60 tabs Allergies Allergy/AdvReac Type Severity Reaction Status Date / Time amlodipine (From Lotrel) Allergy Unknown unknown Verified 03/16/25 22:48 benazepril (From Lotrel) Allergy Unknown unknown Verified 03/16/25 22:48 cephalexin (From Keflex) Allergy Unknown unknown Verified 03/16/25 22:48 Sulfa (Sulfonamide Allergy Unknown unknown Verified 03/16/25 22:48 Antibiotics) PFSH ED PFSH: Medical History Benign essential HTN Non-ischemic cardiomyopathy Anxiety Cardiomyopathy LBBB (left bundle branch block) EKG from today, 03/25/2020 revealed normal sinus rhythm with a left bundle branch block. Hyperlipidemia Peripheral arterial occlusive disease Major depressive disorder Surgical History H/O breast biopsy History of cholecystectomy History of laparoscopic appendectomy Family History Other CAD (coronary artery disease) Diabetes Hypertension Lung disease Stroke Denies family history of Dementia Hyperlipidemia Psychiatric illness Chronic kidney disease (CKD) Suicide Cancer Social History Smoking and tobacco/nicotine status: never used tobacco/nicotine Second hand smoke exposure: Yes Alcohol intake: never Substance/Drug Use: never Lives independently: Yes Household members: none Housing: House Marital status: / service: No Current occupational status: retired Pets and animals: Yes Do you think of yourself as: Straight/Heterosexual Current gender identity: Female NIH stroke score Score: Total Score: 2 Course Vital Signs: Vital signs: Vital Signs Temperature 97.8 F 03/17/25 03:27 Pulse Rate 83 03/17/25 03:27 Respiratory Rate 19 H 03/17/25 03:27 Blood Pressure 158/86 03/17/25 03:27 Pulse Oximetry 97 03/17/25 03:27 Oxygen Delivery Me thod Room Air 03/17/25 02:10 MDM - Neuro Symptoms/Deficit Lab Data 03/16/25 23:40 03/16/25 23:[address] 03/17/25 00:29 IMPRESSION: 1. No acute intracranial abnormality. 2. Right maxillary sinus disease and right mastoid effusion. ASSESSMENT: ASPECTS ([place] Stroke Program Early CT Score) is 10. ADDENDUM: 03/17/25 0116 THIS REPORT CONTAINS FINDINGS THAT MAY BE CRITICAL TO PATIENT CARE. Per OC support at 1:10 AM CDT on 03/17/2025, Dr. Albert has seen the reports and has no questions. Head/Neck CTA 03/17/25 00:42 IMPRESSION: No large vessel stenosis or occlusion. IMPRESSION: No stenosis or occlusion. REFERENCES: NASCET CRITERIA. The degree of stenosis in the cervical segment of the internal carotid artery is based on NASCET criteria. Normal is no stenosis. Mild is less than 50% stenosis. Moderate is 50-69% stenosis. Severe is 70% to 99% stenosis. Total occlusion is no detectable patent lumen. ADDENDUM: 03/17/25 0116 THIS REPORT CONTAINS FINDINGS THAT MAY BE CRITICAL TO PATIENT CARE. Per OC support at 1:10 AM CDT on 03/17/2025, Dr. Albert has seen the reports and has no questions. Laboratory Results WBC 7.82 10^3/uL (3.29-11.43) 03/16/25 23:40 RBC 4.52 10^6/uL (3.85-5.65) 03/16/25 23:40 Hgb 13.10 g/dL (11.27-16.99) 03/16/25 23:40 Hct 39.3 % (36-47) 03/16/25 23:40 MCV 86.9 fl (85-98) 03/16/25 23:40 MCH 29.0 pg (27-33) 03/16/25 23:40 MCHC 33.3 g/dL (30-55) 03/16/25 23:40 RDW 13.1 % (12.1-15.1) 03/16/25 23:40 Plt Count 374 10^3/cmm (157-399) 03/16/25 23:40 MPV 9.7 fL (7.4-10.4) 03/16/25 23:40 Neut % (Auto) 40.4 % 03/16/25 23:40 Lymph % (Auto) 45.7 % 03/16/25 23:40 [place] % (Auto) 9.7 % 03/16/25 23:40 Eos % (Auto) 3.3 % 03/16/25 23:40 Baso % (Auto) 0.6 % 03/16/25 23:40 Neut # (Auto) 3.16 10^3/uL (1.8-7.7) 03/16/25 23:40 Lymph # (Auto) 3.6 10^3/uL (0.8-4.8) 03/16/25 23:40 [place] # (Auto) 0.8 10^3/uL (0.2-0.9) 03/16/25 23:40 Eos # (Auto) 0.3 10^3/uL (0.0-0.8) 03/16/25 23:40 Baso # (Auto) 0.1 10^3/uL (0.0-0.1) 03/16/25 23:40 Nucleated RBC % (auto) 0 % 03/16/25 23:40 Nucleated RBCs # 0.0 /100WBC 03/16/25 23:40 PT 12.00 SECONDS (12.1-14.9) L 03/17/25 00:00 INR 0.83 (0.8-1.2) 03/17/25 00:00 APTT 32.1 SECONDS (23.9-36.7) 03/17/25 00:00 Sodium 133 mmol/L (136-145) L 03/16/25 23:40 Potassium 3.9 mmol/L (3.5-5.1) 03/16/25 23:40 Chloride 97 mmol/L (98-107) L 03/16/25 23:40 Carbon Dioxide 23 mmol/L (22-29) 03/16/25 23:40 Anion Gap 16.9 (5-19) 03/16/25 23:40 BUN 15 mg/dL (8-23) 03/16/25 23:40 Creatinine 0.7 mg/dL (0.5-0.9) 03/16/25 23:40 GFR Calculation Not Reportable 03/16/25 23:40 Glucose 108 mg/dL (65-115) 03/16/25 23:40 Calculated Osmolality 277 mOsm/kg (285-295) L 03/16/25 23:40 Lactic Acid 0.8 mmol/L (0.5-2.2) 03/16/25 23:40 Calcium 9.4 mg/dL (8.5-10.5) 03/16/25 23:40 Total Bilirubin 0.3 mg/dL (0.15-1.2) 03/16/25 23:40 AST 19 U/L (0-32) 03/16/25 23:40 ALT 16 U/L (0-33) 03/16/25 23:40 Alkaline Phosphatase 76 U/L (35-105) 03/16/25 23:40 NT-Pro-B Natriuret Pep 1602 pg/mL (0-125) H 03/16/25 23:40 Total Protein 7.2 g/dL (6.6-8.7) 03/16/25 23:40 Albumin 4.2 g/dL (3.5-5.2) 03/16/25 23:40 Globulin 3.0 g/dL (1.3-4.6) 03/16/25 23:40 TSH 18.47 uIU/mL (0.27-4.20) H 03/16/25 23:40 Urine Color Yellow (Yellow) 03/16/25 23:58 Urine Appearance Clear (CLEAR) 03/16/25 23:58 Urine pH 6.5 (5-7) 03/16/25 23:58 Ur Specific [place] 1.007 (1.005-1.030) 03/16/25 23:58 Urine Protein Negative (Negative) 03/16/25 23:58 Urine Glucose (UA) Negative (Normal) 03/16/25 23:58 Urine Ketones Negative (Negative) 03/16/25 23:58 Urine Blood Negative (Negative) 03/16/25 23:58 Urine Nitrate Negative (Negative) 03/16/25 23:58 Urine Bilirubin Negative (Negative) 03/16/25 23:58 Urine Urobilinogen 0.2 mg/dL (Negative) 03/16/25 23:58 Ur Leukocyte Esterase 1+ (Negative) A 03/16/25 23:58 Urine RBC 0-2 /hpf (0-2) 03/16/25 23:58 Urine WBC 6-10 /hpf (0-5) 03/16/25 23:58 Ur Squamous Epith Cells 0-5 /hpf (0-5) 03/16/25 23:58 Amorphous Sediment Not Reportable 03/16/25 23:58 Urine Bacteria None seen /hpf (NONE) 03/16/25 23:58 Hyaline Casts 0.40 /lpf 03/16/25 23:58 Urine Opiates Screen Negative ng/mL (Negative) 03/17/25 00:00 Ur Barbiturates Screen Negative ng/mL (Negative) 03/17/25 00:00 Ur Phencyclidine Scrn Negative ng/mL (Negative) 03/17/25 00:00 Ur Amphetamines Screen Negative ng/mL (Negative) 03/17/25 00:00 U Benzodiazepines Scrn Negative ng/mL (Negative) 03/17/25 00:00 Urine Cocaine Screen Negative ng/mL (Negative) 03/17/25 00:00 U Marijuana (THC) Screen Negative ng/mL (Negative) 03/17/25 00:00 Discharge Plan Discharge Patient Disposition: Placed in Observation Admit Provider: Doyle Enriquez Clinical Impression: Right maxillary sinusitis, LBBB (left bundle branch block) Cerebrovascular accident Qualifiers: CVA mechanism: unspecified Qualified Code(s): I63.9 - Cerebral infarction, unspecified Coding Level of Care Code ED Displayer Merchandise for [employer]
[2025-03-17 00:47] LABS: PCP Screen Urine Negative (Negative)
[2025-03-17 00:52] LABS: INR 0.83 (0.8-1.2); Prothrombin Time 12.00 SECONDS (12.1-14.9)
[2025-03-17 00:53] LABS: Partial Thromboplastin Time 32.1 SECONDS (23.9-36.7)
[2025-03-17] MEDS: iohexol 350 mg/mL 500 mL Btl (per mL) IV (01:00)
--- NOTE | 2025-03-17 02:10 | PC.NURSE ---
Kasey Curtis (patients daughter ) whome to be contacted [phone]
--- NOTE | 2025-03-17 02:15 | PM.HP ---
Providers/Chief Complaint Admitting Physician: Doyle Enriquez MD Primary Care Provider: BETTY Hussein Chief Complaint: Confused History of Present Illness Juany Diana is a 74 year old female with a past medical history of hypothyroidism, hypertension, hyperlipidemia, who presents to [facility] for word finding difficulty, slurring of her words, right hand numbness. Currently patient is alert oriented x 3, following all commands, denies any focal weakness, she has very mild slurring of her words, mild word finding difficulty, her NIH stroke scale was 2, came in as a stroke alert symptoms started at 3 PM, CT head no acute findings, CTA head and neck no acute findings, she was not deemed a tPA or embolectomy candidate after consultation with ER provider and neurology. According to patient around 3 PM, she was working in her basement around cleaning with chemicals, when she started did not feel well, she went up to her bed to take a nap, when she got up after her nap, she started feeling that she had trouble communicating words, coming up with the right answers, family over did not notice any significant facial droop, she did notice that she was at times slurring her words, she had some numbness of her right hand, no clumsiness reported, no weakness reported, no right leg weakness, no visual deficits, currently she denies any right hand numbness, she does have very mild word finding difficulty and slurring of her words, but she tells me that her symptoms have significantly resolved, she does also report that she stopped taking her aspirin for the last 2 days Review of Systems Const: Denies: fever(s), fatigue or malaise Card: Denies: chest pain Resp: Denies: dyspnea GI: Denies: abdominal pain Neuro: Reports: numbness in extremities, Slurred speech present and difficulty communicating thoughts; Denies: headache(s), weakness in extremities, lack of coordination, frequent falls, dizziness, vertigo or seizure-like activity Medications/Allergies Home Medications ?Medication ?Instructions ?Recorded ?Confirmed ?Last Taken ?Type aspirin 81 mg tablet,delayed 81 mg PO DAILY 03/25/20 02/09/25 Unknown History release (Adult Low Dose Aspirin) lansoprazole 30 mg capsule,delayed 30 mg PO DAILY 03/25/20 02/09/25 Unknown History release lovastatin 20 mg tablet 20 mg PO DAILY 03/25/20 02/09/25 Unknown History sertraline 50 mg tablet 50 mg PO DAILY 03/25/20 02/09/25 Unknown History spironolactone 25 mg tablet 12.5 mg PO DAILY 03/25/20 02/09/25 Unknown History Saccharomyces boulardii 250 mg 250 mg PO DAILY 09/10/20 02/09/25 Unknown History capsule (Florastor) albuterol sulfate 2.5 mg/3 mL 2.5 mg inhalation Q6H PRN 09/10/20 02/09/25 Unknown History (0.083 %) solution for nebulization montelukast 10 mg tablet 10 mg PO DAILY 09/10/20 02/09/25 Unknown History albuterol sulfate 90 mcg/actuation 2 puff inhalation Q6H PRN 09/23/20 02/09/25 Unknown Rx aerosol inhaler shortness of breath or wheezing #8.5 grams Probiotic PO 01/25/22 02/09/25 Unknown History fexofenadine 180 mg tablet 180 mg PO DAILY PRN 01/25/22 02/09/25 Unknown History (Roxanne Allergy) fluticasone propionate 50 1 spray intranasal DAILY PRN 01/25/22 02/09/25 Unknown History mcg/actuation nasal spray,suspension metoprolol succinate 50 mg See Rx Instructions .Route 02/26/23 02/09/25 Unknown Rx tablet,extended release 24 hr .COMPLEX #90 tabs levothyroxine 13 mcg capsule 50 mcg PO DAILY 02/26/24 02/09/25 Unknown History valsartan 80 mg tablet See Rx Instructions .Route 03/05/24 02/09/25 Unknown Rx .COMPLEX #60 tabs budesonide-formoterol HFA 160 2 puff inhalation BID PRN COPD 02/09/25 Unknown History mcg-4.5 mcg/actuation aerosol j44.9 inhaler zinc 50 mg tablet 50 mg PO DAILY PRN 02/09/25 02/09/25 Unknown History Allergies Allergy/AdvReac Type Severity Reaction Status Date / Time amlodipine (From Lotrel) Allergy Unknown unknown Verified 03/16/25 22:48 benazepril (From Lotrel) Allergy Unknown unknown Verified 03/16/25 22:48 cephalexin (From Keflex) Allergy Unknown unknown Verified 03/16/25 22:48 Sulfa (Sulfonamide Allergy Unknown unknown Verified 03/16/25 22:48 Antibiotics) PFSH Acute PFSH: Medical History Benign essential HTN Non-ischemic cardiomyopathy Anxiety Cardiomyopathy LBBB (left bundle branch block) EKG from today, 03/25/2020 revealed normal sinus rhythm with a left bundle branch block. Hyperlipidemia Peripheral arterial occlusive disease Major depressive disorder Surgical History H/O breast biopsy History of cholecystectomy History of laparoscopic appendectomy Family History Other CAD (coronary artery disease) Diabetes Hypertension Lung disease Stroke Denies family history of Dementia Hyperlipidemia Psychiatric illness Chronic kidney disease (CKD) Suicide Cancer Social History Smoking and tobacco/nicotine status: never used tobacco/nicotine Second hand smoke exposure: Yes Alcohol intake: never Substance/Drug Use: never Lives independently: Yes Household members: none Housing: House Marital status: / service: No Current occupational status: retired Pets and animals: Yes Do you think of yourself as: Straight/Heterosexual Current gender identity: Female Vitals/I&O/Wt Last Vital Signs Temp 97.8 F 03/16/25 22:43 Pulse 81 03/17/25 02:10 Resp 19 H 03/17/25 02:10 BP 156/84 03/17/25 02:10 Pulse Ox 94 03/17/25 02:10 O2 Del Method Room Air 03/17/25 02:10 Weight last 48 hrs Weight 52.163 kg Physical Exam Const: COMMON NORMALS: no acute distress and patient oriented x3 HENMT: COMMON NORMALS: normocephalic HEAD & SCALP: normocephalic Eye: COMMON NORMALS: Equal, round and reactive pupils present and EOMs intact bilaterally Resp: COMMON NORMALS: normal respiratory effort, No retractions, No use of accessory muscles and clear to auscultation bilaterally AUSCULTATION: clear to auscultation bilaterally Cardio: COMMON NORMALS: regular rate, regular rhythm, S1 normal heart sound present and S2 normal heart sound present RATE: regular rate RHYTHM: regular rhythm HEART SOUNDS: S1 normal heart sound present and S2 normal heart sound present GI: COMMON NORMALS: Normal to inspection, nondistended, normoactive bowel sounds present, Soft to palpation and non-tender Extremity: COMMON NORMALS: no calf tenderness and no pedal edema Neuro: COMMON NORMALS: patient oriented x3, CN's II-XII intact bilaterally, moves all extremities and no focal motor deficits Psych: COMMON NORMALS: mental status grossly normal Data 03/16/25 23:40 03/16/25 23:40 A&P Assessment and plan 1. Benign essential HTN: 2. Cerebrovascular accident: 3. Hyperlipidemia: Plan: Acute CVA - With word finding difficulty, slurring of her words - CT head CT/CT head thrombolytic 68003 IMPRESSION: 1. No acute intracranial abnormality. 2. Right maxillary sinus disease and right mastoid effusion. - CTA head and neck CT/CT angio headneck* [id number] IMPRESSION: No large vessel stenosis or occlusion. IMPRESSION: No stenosis or occlusion. Plan - Aspirin - Statin - Plavix - Telemetry monitoring - Cardiac echo as below - Allow for permissive hypertension - PT OT - Speech therapy eval - Dysphagia screen - DNR/DNI Lovenox for DVT prophylaxis Elevated TSH, check T3, check T4 Recent cardiac echo February 2025 CONCLUSIONS 1. Moderately reduced left ventricular systolic function, EF 35%. There is global left ventricular hypokinesis with akinesis of the inferoseptal and inferior johnson. 2. No significant valvular abnormalities 3. Mild mitral valve regurgitation - Ordered due to syncopal episode Stress test in January IMPRESSIONS 1. Abnormal myocardial perfusion imaging with medium sized area of prior infarct seen in the apical, septal and apical inferior johnson. No evidence of ischemia 2. LV systolic function is moderately reduced with EF of 36% - No chest pain complaints - Repeat troponin series DNR/DNI Lovenox for DVT prophylaxis PDMP PDMP Reviewed: Not Reviewed Attestations Medical Necessity Statement*: Patient requires hospitalization, outpatient with observation, for acute CVA Diagnoses Benign essential HTN I10 Cerebrovascular accident I63.9 Hyperlipidemia E78.5
[2025-03-17 02:57] LABS: NT Pro B Type Natriuretic Pept 1602 pg/mL (0-125)
[2025-03-17] MEDS: pantoprazole 40 mg SDV IVP (03:17)
[2025-03-17 03:19] LABS: Troponin(5th) Baseline 14 ng/L (0-10)
[2025-03-17 03:45] LABS: Cholesterol 195 mg/dL (0-200); Free T4 Free Thyroxine 1.15 ng/dL (0.82-1.77); HDL Cholesterol 71 mg/dL (60-100); Triglycerides 64 mg/dL (0-150)
[2025-03-17 04:09] LABS: Estmated Average Glucose 111; Hemoglobin A1C 5.5 % (4.0-6.0)
--- NOTE | 2025-03-17 04:17 | ECG_ITS ---
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 Measurements Intervals [place] Rate: 71 P: 53 [place]: 190 QRS: 0 QRSD: 145 T: 168 QT: 435 QTc: 473 Interpretive Statements SINUS RHYTHM LEFT BUNDLE BRANCH BLOCK [120+ ms QRS DURATION, 80+ ms Q/S IN V1/V2, 85+ ms R IN I/aVL/V5/V6] Compared to ECG 03/16/2025 23:50:42 No significant changes Electronically Signed On 03-18-2025 09:27:54 CDT by Suraj Awad M.D. [email or web address]
[2025-03-17 04:52] LABS: Troponin 5 2HR 15.78 ng/L (0-10); Troponin 5 2HR Delta 1.78 ABS# (0-10)
--- NOTE | 2025-03-17 09:47 | ECG_ITS ---
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 Measurements Intervals [place] Rate: 69 P: 50 [place]: 184 QRS: -2 QRSD: 150 T: 182 QT: 420 QTc: 451 Interpretive Statements SINUS RHYTHM LEFT BUNDLE BRANCH BLOCK [120+ ms QRS DURATION, 80+ ms Q/S IN V1/V2, 85+ ms R IN I/aVL/V5/V6] Compared to ECG 03/17/2025 04:17:22 No significant changes Electronically Signed On 03-18-2025 09:25:57 CDT by Suraj Awad M.D. [email or web address]
[2025-03-17 10:34] LABS: Troponin 5 6HR 11.34 ng/L (0-10)
[2025-03-17 10:38] LABS: Troponin 5 6HR Delta -2.66 ng/L (0-12)
--- NOTE | 2025-03-17 15:06 | PM.DCS ---
Discharge Providers Date of Admission: 03/17/25 01:25 Date of Discharge: March 17, 2025 Attending Provider at Admission: Doyle Enriquez MD Attending Provider at Discharge: Pedro Luis Land MD Consults: Neurology Primary Care Provider: BETTY Hussein Diagnoses at Discharge Discharge Diagnosis 1. Benign essential HTN: 2. Cerebrovascular accident: 3. Mixed hyperlipidemia: Reason for Visit Reason for Visit: Confused Brief History: Juany Diana is a 74 year old female with a past medical history of hypothyroidism, hypertension, ischemic cardiomyopathy with ejection fraction of 35% and on GDMT, hyperlipidemia, who presents to [facility] for word finding difficulty, slurring of her words, right hand numbness. Currently patient is alert oriented x 3, following all commands, denies any focal weakness, she has very mild slurring of her words, mild word finding difficulty, her NIH stroke scale was 2, came in as a stroke alert symptoms started at 3 PM, CT head no acute findings, CTA head and neck no acute findings, she was not deemed a tPA or embolectomy candidate after consultation with ER provider and neurology. According to patient around 3 PM, she was working in her basement around cleaning with chemicals, when she started did not feel well, she went up to her bed to take a nap, when she got up after her nap, she started feeling that she had trouble communicating words, coming up with the right answers, family over did not notice any significant facial droop, she did notice that she was at times slurring her words, she had some numbness of her right hand, no clumsiness reported, no weakness reported, no right leg weakness, no visual deficits, currently she denies any right hand numbness, she does have very mild word finding difficulty and slurring of her words, but she tells me that her symptoms have significantly resolved, she does also report that she stopped taking her aspirin for the last 2 days however no such episodes inthe past. no h/o pemature CAD, or early strokes in the [facility] Course Hospital Course The patient was seen in the morning and doing well. Able to move around without any focal deficit. No confusion was oriented to time place and person, EKG did not show any irregular rhythm however showed left bundle branch block which was seen in the previous EKGs as well. She was found to have TSH of around 18 and was kept on levothyroxine 50 mcg. There was a recent echocardiogram that showed ejection fraction of 35% and she is on GDMT.Her cholesterol was in the normal range and HbA1c was 5.5% Neurology was consulted and advised to continue on aspirin and Plavix for 21 days and then to continue on Plavix with follow-up with neurology as outpatient. The patient was informed about the plan of care along with the family as well and the patient agreed without any language barrier. Images, labs and EKG reviewed independently. Physical Exam Narrative: No acute distress patient oriented to time place and person at room air saturating in the normal range Resp: OTHER: Normal vesicular breathing on auscultation, without any wheezes or any added sounds. No respiratory distress Cardio: OTHER: Regular rhythm, peripheral pulses normal, S1-S2 normal no murmur or gallop rhythms appreciated Patient looks euvolemic Neuro: OTHER: Patient oriented to time place and person, cranial nerves intact bilaterally, moving all extremities without any focal motor or sensory deficit. Gait normal Psych: OTHER: Appropriate behavior Discharge Data Studies Completed and Pending Completed Studies During Hospitalization Category Date Time Status CT head thrombolytic [id number] Stat Cat Scan 03/17/25 00:29 Completed CTA head neck [CT angio headneck* [id number]] Stat Cat Scan 03/17/25 00:42 Completed Radiology Impressions Head CT 03/17/25 00:29 IMPRESSION: 1. No acute intracranial abnormality. 2. Right maxillary sinus disease and right mastoid effusion. ASSESSMENT: ASPECTS (Jada Stroke Program Early CT Score) is 10. ADDENDUM: 03/17/25 0116 THIS REPORT CONTAINS FINDINGS THAT MAY BE CRITICAL TO PATIENT CARE. Per OC support at 1:10 AM CDT on 03/17/2025, Dr. Albert has seen the reports and has no questions. Head/Neck CTA 03/17/25 00:42 IMPRESSION: No large vessel stenosis or occlusion. IMPRESSION: No stenosis or occlusion. REFERENCES: NASCET CRITERIA. The degree of stenosis in the cervical segment of the internal carotid artery is based on NASCET criteria. Normal is no stenosis. Mild is less than 50% stenosis. Moderate is 50-69% stenosis. Severe is 70% to 99% stenosis. Total occlusion is no detectable patent lumen. ADDENDUM: 03/17/25 0116 THIS REPORT CONTAINS FINDINGS THAT MAY BE CRITICAL TO PATIENT CARE. Per OC support at 1:10 AM CDT on 03/17/2025, Dr. Albert has seen the reports and has no questions. Laboratory Results WBC 7.82 10^3/uL (3.29-11.43) 03/16/25 23:40 RBC 4.52 10^6/uL (3.85-5.65) 03/16/25 23:40 Hgb 13.10 g/dL (11.27-16.99) 03/16/25 23:40 Hct 39.3 % (36-47) 03/16/25 23:40 MCV 86.9 fl (85-98) 03/16/25 23:40 MCH 29.0 pg (27-33) 03/16/25 23:40 MCHC 33.3 g/dL (30-55) 03/16/25 23:40 RDW 13.1 % (12.1-15.1) 03/16/25 23:40 Plt Count 374 10^3/cmm (157-399) 03/16/25 23:40 MPV 9.7 fL (7.4-10.4) 03/16/25 23:40 Neut % (Auto) 40.4 % 03/16/25 23:40 Lymph % (Auto) 45.7 % 03/16/25 23:40 [place] % (Auto) 9.7 % 03/16/25 23:40 Eos % (Auto) 3.3 % 03/16/25 23:40 Baso % (Auto) 0.6 % 03/16/25 23:40 Neut # (Auto) 3.16 10^3/uL (1.8-7.7) 03/16/25 23:40 Lymph # (Auto) 3.6 10^3/uL (0.8-4.8) 03/16/25 23:40 [place] # (Auto) 0.8 10^3/uL (0.2-0.9) 03/16/25 23:40 Eos # (Auto) 0.3 10^3/uL (0.0-0.8) 03/16/25 23:40 Baso # (Auto) 0.1 10^3/uL (0.0-0.1) 03/16/25 23:40 Nucleated RBC % (auto) 0 % 03/16/25 23:40 Nucleated RBCs # 0.0 /100WBC 03/16/25 23:40 PT 12.00 SECONDS (12.1-14.9) L 03/17/25 00:00 INR 0.83 (0.8-1.2) 03/17/25 00:00 APTT 32.1 SECONDS (23.9-36.7) 03/17/25 00:00 Sodium 133 mmol/L (136-145) L 03/16/25 23:40 Potassium 3.9 mmol/L (3.5-5.1) 03/16/25 23:40 Chloride 97 mmol/L (98-107) L 03/16/25 23:40 Carbon Dioxide 23 mmol/L (22-29) 03/16/25 23:40 Anion Gap 16.9 (5-19) 03/16/25 23:40 BUN 15 mg/dL (8-23) 03/16/25 23:40 Creatinine 0.7 mg/dL (0.5-0.9) 03/16/25 23:40 GFR Calculation Not Reportable 03/16/25 23:40 Glucose 108 mg/dL (65-115) 03/16/25 23:40 Estimat Average Glucose 111 03/17/25 02:45 Hemoglobin A1c 5.5 % (4.0-6.0) 03/17/25 02:45 Calculated Osmolality 277 mOsm/kg (285-295) L 03/16/25 23:40 Lactic Acid 0.8 mmol/L (0.5-2.2) 03/16/25 23:40 Calcium 9.4 mg/dL (8.5-10.5) 03/16/25 23:40 Total Bilirubin 0.3 mg/dL (0.15-1.2) 03/16/25 23:40 AST 19 U/L (0-32) 03/16/25 23:40 ALT 16 U/L (0-33) 03/16/25 23:40 Alkaline Phosphatase 76 U/L (35-105) 03/16/25 23:40 Troponin T Baseline 14 ng/L (0-10) H 03/17/25 02:45 Troponin T 120 Minute 15.78 ng/L (0-10) H 03/17/25 04:12 Delta Troponin T 1.78 ABS# (0-10) 03/17/25 04:12 Troponin T Hi Sens 6Hr 11.34 ng/L (0-10) H 03/17/25 09:41 Troponin T Hi Sens 6Hr Delta -2.66 ng/L (0-12) L 03/17/25 09:41 NT-Pro-B Natriuret Pep 1602 pg/mL (0-125) H 03/16/25 23:40 Total Protein 7.2 g/dL (6.6-8.7) 03/16/25 23:40 Albumin 4.2 g/dL (3.5-5.2) 03/16/25 23:40 Globulin 3.0 g/dL (1.3-4.6) 03/16/25 23:40 Triglycerides 64 mg/dL (0-150) 03/17/25 02:45 Cholesterol 195 mg/dL (0-200) 03/17/25 02:45 LDL Cholesterol, Calc 111 mg/dL (50-129) 03/17/25 02:45 HDL Cholesterol 71 mg/dL (60-100) 03/17/25 02:45 LDL/HDL Ratio 1.56 RATIO (0.00-3.22) 03/17/25 02:45 Cholesterol/HDL Ratio 2.75 mg/dL (0.0-4.40) 03/17/25 02:45 TSH 18.47 uIU/mL (0.27-4.20) H 03/16/25 23:40 Free T4 1.15 ng/dL (0.82-1.77) 03/17/25 02:45 Free T3 2.9 PG/ML (2.0-4.4) 03/17/25 02:45 Urine Color Yellow (Yellow) 03/16/25 23:58 Urine Appearance Clear (CLEAR) 03/16/25 23:58 Urine pH 6.5 (5-7) 03/16/25 23:58 Ur Specific [place] 1.007 (1.005-1.030) 03/16/25 23:58 Urine Protein Negative (Negative) 03/16/25 23:58 Urine Glucose (UA) Negative (Normal) 03/16/25 23:58 Urine Ketones Negative (Negative) 03/16/25 23:58 Urine Blood Negative (Negative) 03/16/25 23:58 Urine Nitrate Negative (Negative) 03/16/25 23:58 Urine Bilirubin Negative (Negative) 03/16/25 23:58 Urine Urobilinogen 0.2 mg/dL (Negative) 03/16/25 23:58 Ur Leukocyte Esterase 1+ (Negative) A 03/16/25 23:58 Urine RBC 0-2 /hpf (0-2) 03/16/25 23:58 Urine WBC 6-10 /hpf (0-5) 03/16/25 23:58 Ur Squamous Epith Cells 0-5 /hpf (0-5) 03/16/25 23:58 Amorphous Sediment Not Reportable 03/16/25 23:58 Urine Bacteria None seen /hpf (NONE) 03/16/25 23:58 Hyaline Casts 0.40 /lpf 03/16/25 23:58 Urine Opiates Screen Negative ng/mL (Negative) 03/17/25 00:00 Ur Barbiturates Screen Negative ng/mL (Negative) 03/17/25 00:00 Ur Phencyclidine Scrn Negative ng/mL (Negative) 03/17/25 00:00 Ur Amphetamines Screen Negative ng/mL (Negative) 03/17/25 00:00 U Benzodiazepines Scrn Negative ng/mL (Negative) 03/17/25 00:00 Urine Cocaine Screen Negative ng/mL (Negative) 03/17/25 00:00 U Marijuana (THC) Screen Negative ng/mL (Negative) 03/17/25 00:00 Vitals Last Vital Signs Temp 97.8 F 03/17/25 11:34 Pulse 65 03/17/25 11:34 Resp 16 03/17/25 11:34 BP 134/72 03/17/25 11:34 Pulse Ox 95 03/17/25 11:34 O2 Del Method Room Air 03/17/25 11:34 Discharge Plan Discharge Patient Disposition: Home Condition: Stable Prescriptions: New clopidogrel 75 mg Tablet 75 mg PO DAILY 180 Days Qty: 180 3RF levothyroxine 50 mcg Tablet 50 mcg PO DAILY 180 Days Qty: 180 3RF Continued lansoprazole 30 mg capsule,delayed release(DR/EC) 30 mg PO DAILY PRN (Reason: Acid Reflux) spironolactone 25 mg tablet 12.5 mg PO DAILY fexofenadine [Roxanne Allergy] 180 mg tablet 180 mg PO DAILY PRN (Reason: allergies) Saccharomyces boulardii [Florastor] 250 mg capsule 250 mg PO DAILY Rx Instructions: swallow whole montelukast 10 mg tablet 10 mg PO DAILY albuterol sulfate 90 mcg/actuation HFA aerosol inhaler 2 puff inhalation Q6H PRN (Reason: shortness of breath or wheezing) Qty: 8.5 3RF metoprolol succinate 50 mg tablet extended release 24 hr See Rx Instructions .ROUTE .COMPLEX Qty: 90 3RF Dose Instruction: TAKE 1 TABLET DAILY Rx Instructions: TAKE 1 TABLET DAILY lovastatin 40 mg tablet 40 mg PO DAILY valsartan 160 mg tablet 160 mg PO BID aspirin [Adult Low Dose Aspirin] 81 mg tablet,delayed release (DR/EC) 81 mg PO DAILY 21 Days Qty: 21 0RF Discontinued levothyroxine 25 mcg tablet 25 mcg PO QAM Discharge Order = DC NOW: Discharge Order (Routine); Ordered 03/17/25 Ordered By: Pedro Luis Land Referrals: Juancarlos Diaz MD [Physician, Neurology] - 04/20/25 3:00 pm Referral Note: Problems: Cerebrovascular accident Bernice Fletcher FNP [Primary Care Provider] - 03/20/25 2:00 pm Patient Instructions: Clopidogrel (By mouth) (Plavix), Hypothyroidism (DC), Stroke (DC), Opioid Safety, Stroke Stoplight, Patient Portal & Tanya Instructions Activity Restrictions/Additional Instructions: to take aspirin and clopidogrel for 21 days and then to continue on clopidogrel 75 mg daily infinitely and to follow-up with the neurology in 7 to 10 days of discharge Discharge Attestations Time Spent in Discharge Care*: greater than 30 min Specific Discharge Activities: educating patient, educating and/or supporting family/caregiver, discussing with pcp/other providers, discussing with leather case finisher/social workers/dc planners, documenting/other paperwork and evaluating patient/reviewing data Status at Discharge: Behavioral status at discharge: cooperative, Functional status at discharge: independent ambulation, Overall status at discharge: patient is back to baseline Quality Metrics Clinical Quality Measures [ Cerebrovascular Accident { Contraindication to Antithrombotic: None; antithrombotic prescribed (aspirin and plavix); Contraindication to Anticoagulation: Overlap treatment not indicated; Contraindication to Statin: None; Statin prescribed;}] Coding Level of Care Code 93482 Total time (in minutes) for Discharge: 45 Diagnoses Benign essential HTN I10 Cerebrovascular accident I63.9 CVA mechanism: unspecified Mixed hyperlipidemia E78.2 Hyperlipidemia type: mixed hyperlipidemia
== END 2025-03-17 14:35 | disposition home or self-care (01) ==
LOC: ER 03-17 00:55 → MEDSURG 03-17 02:03
PROVIDERS: Admitting Provider Family Medicine; Emergency Provider Physician Assistant; PCP Nurse Practitioner Family; Visit Provider Student in an Organized Health Care Education/Training Program
DX: R47.01 Aphasia (principal); R20.0 Anesthesia of skin; R47.81 Slurred speech; I10 Essential (primary) hypertension; E78.2 Mixed hyperlipidemia; Z79.82 Long term (current) use of aspirin; K21.9 Gastro-esophageal reflux disease without esophagitis; E03.9 Hypothyroidism, unspecified; I25.5 Ischemic cardiomyopathy; F41.9 Anxiety disorder, unspecified; I73.9 Peripheral vascular disease, unspecified; Z86.79 Personal history of other diseases of the circulatory system; F32.9 Major depressive disorder, single episode, unspecified; Z82.49 Family history of ischemic heart disease and other diseases of the circulatory system; Z82.3 Family history of stroke
CPT/HCPCS: 36415; 70450; 70496; 70498; 80053; 80061; 80306; 81001; 83036; 83605; 83880; 84439; 84443; 84481; 84484; 85025; 85610; 85730; 92523; 92610; 93005; 94664; 96372; 97161; 97165; 99285; G0378; J1650; J2470; J7030; J9999

== ENCOUNTER → 2025-03-23 07:44 | Outpatient (BNVA) | payer MEDICARE, OTHER, SELFPAY | PROVIDERS: PCP Nurse Practitioner Family; Referring Provider Family Medicine; Visit Provider Psychiatry & Neurology Neurology | DX: G45.9 Transient cerebral ischemic attack, unspecified (principal); I63.9 Cerebral infarction, unspecified; R93.89 Abnormal findings on diagnostic imaging of other specified body structures; H91.91 Unspecified hearing loss, right ear | CPT/HCPCS: 99203 ==

== ENCOUNTER → 2025-04-03 09:01 | Outpatient (BNVA) | payer MEDICARE, OTHER, SELFPAY | PROVIDERS: PCP Nurse Practitioner Family; Visit Provider Internal Medicine Cardiovascular Disease | DX: E78.5 Hyperlipidemia, unspecified (principal); I44.7 Left bundle-branch block, unspecified; I42.8 Other cardiomyopathies; I10 Essential (primary) hypertension; Z79.02 Long term (current) use of antithrombotics/antiplatelets; Z79.82 Long term (current) use of aspirin | CPT/HCPCS: 99214 ==

== ENCOUNTER → 2025-04-17 13:12 | Outpatient (BNVA) | payer MEDICARE, OTHER, SELFPAY | PROVIDERS: PCP Nurse Practitioner Family; Referring Provider Psychiatry & Neurology Neurology; Visit Provider Nurse Practitioner | DX: G45.9 Transient cerebral ischemic attack, unspecified (principal) | CPT/HCPCS: 99213 ==

== ENCOUNTER 2025-05-04 09:45 | Outpatient (CLI) | payer MEDICARE, OTHER, SELFPAY ==
--- NOTE | 2025-05-04 10:15 | MR_ITS ---
WS: [id number] MRI BRAIN WITHOUT CONTRAST HISTORY: G45.9 - Transient cerebral ischemic attack, unspecified COMPARISON: None available. TECHNIQUE: Diffusion imaging, multiplanar T1, T2 and FLAIR imaging obtained. No evidence for acute infarct or hemorrhage. Noriega-white matter differentiation is normal. Very minimal small vessel disease in volume loss. No large territory infarct. No prior infarct. Ventricles and extra-axial spaces are normal. No inferior displacement of cerebellar tonsils. The sella turcica and pituitary gland are unremarkable. Dural venous sinuses and [place] of [place] demonstrate no abnormality on this unenhanced studies. Paranasal sinuses: Heterogeneous near complete opacification RIGHT maxillary sinus. Mastoid air cells: Large mastoid air cell effusion. This is asymmetric to the LEFT. Calvarium and scalp: Intact. MR/MR head wo con* [id number] IMPRESSION: 1. Normal diffusion imaging. No acute or subacute infarct. 2. Very mild cerebral atrophy with mild small vessel disease. 3. Large RIGHT mastoid air cell effusion. 4. Dense heterogeneous opacification RIGHT maxillary sinus. Likely inspissated sinus secretions.
== END 2025-05-04 09:46 | disposition home or self-care (01) ==
LOC: RAD 09:45
PROVIDERS: PCP Nurse Practitioner Family; Visit Provider Nurse Practitioner
DX: G45.9 Transient cerebral ischemic attack, unspecified (principal); I67.89 Other cerebrovascular disease; H74.8X1 Other specified disorders of right middle ear and mastoid; J32.0 Chronic maxillary sinusitis
CPT/HCPCS: 70551